=== PATIENT | female | born 1995 | race Hispanic/Latino ===

== ENCOUNTER 2021-05-24 09:35 | Emergency (ER) | payer OTHER, SELFPAY ==
[2021-05-24] MEDS ORDERED: MAGNES/ALUMIN/SIMET 30ML UCUP ONE (10:25)
[2021-05-24] MEDS ORDERED: LIDOCAINE VISCOUS 2% SOLN 15 ML UDC ONE (10:25)
[2021-05-24 11:29] LABS: SARS-COV-2 RT PCR NEGATIVE (NEGATIVE)
--- NOTE | 2021-05-24 11:43 | ER ---
Nurse's Notes [facility] Name: Len Mock Age: 26 yrs Sex: Female : 1995 Arrival Date: 05/24/2021 Time: 09:39 Bed 15 Private MD: Diagnosis: Acute pharyngitis, unspecified Presentation: 05/24 09:41 Chief complaint: Patient states: sore throat, cough, congestion x 1 week ago. aa5 Coronavirus screen: congestion, cough unrelated to allergies, sore throat. Ebola Screen: Patient negative for fever greater than or equal to 101.5 degrees Fahrenheit, and additional compatible Ebola Virus Disease symptoms. Initial Sepsis Screen: Does the patient meet any 2 criteria? No. Patient's initial sepsis screen is negative. Does the patient have a suspected source of infection? No. Patient's initial sepsis screen is negative. Risk Assessment: Do you want to hurt yourself or someone else? Patient reports no desire to harm self or others. Onset of symptoms was April 2021. 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 - Social history:: Smoking status: Patient denies any tobacco usage or history of. Screenin:07 Abuse screen: Denies threats or abuse. Nutritional screening: No deficits noted. oh Tuberculosis screening: No symptoms or risk factors identified. Fall Risk None identified. Assessment: 10:05 General: Appears comfortable, Behavior is calm, cooperative, Reports cough, congestion oh x 1 week. Pain: Complains of pain in throat. Respiratory: Reports cough that is. EENT: Reports nasal congestion. Vital Signs: 09:41 BP 123 / 82; Pulse 74; Resp 16 S; Temp 98.4(O); Pulse Ox 99% on R/A; Weight 68.04 kg aa5 (R); Height 5 ft. 1 in. (154.94 cm) (R); 09:41 Body Mass Index 28.34 (68.04 kg, 154.94 cm) aa5 ED Course: 09:39 Patient arrived in ED. as 09:41 Alicia Betancur FNP-C is [facility]. kb 09:41 Lee Acevedo MD is Attending Physician. kb 09:41 Arm band placed on. aa5 09:44 Triage completed. aa5 09:58 Geovanna Kessler, RN is Primary Nurse. oh 10:03 Strep Sent. tc5 10:07 Bed in low position. Call light in reach. oh 12:20 No provider procedures requiring assistance completed. Patient did not have IV access iw during this emergency room visit. Administered Medications: 10:05 Drug: GI Cocktail without - (Maalox Suspension 30 ml, Lidocaine Liquid 2 % 15 oh ml) Route: PO; 10:31 Follow up: Response: No adverse reaction oh Outcome: 11:43 Discharge ordered by MD. kb 12:20 Discharged to home ambulatory, with family. iw 12:20 Condition: good 12:20 Discharge instructions given to patient, Instructed on discharge instructions, follow up and referral plans. Demonstrated understanding of instructions, follow-up care. 12:20 Patient left the ED. iw Signatures: Alicia Betancur FNP-C FNP-Yanelis Vázquez as Lyubov Martinez, ANABEL RN Denise Baird, RN RN [facility] Geovanna Kessler, RN RN nd Meli Ruiz, RN RN 5 Corrections: (The following items were deleted from the chart) 10:44 10:03 Influenza Screen (A \T\ B)+BA.LAB.BRZ drawn and sent. tc5 EDMS :44 10:03 CORONAVIRUS+MR.LAB.BRZ drawn and sent. tc5 EDMS
--- NOTE | 2021-05-24 11:43 | EDPHYS ---
Physician Documentation [facility] Name: Len Mock Age: 26 yrs Sex: Female : 1995 Arrival Date: 05/24/2021 Time: 09:39 Bed 15 Private MD: ED Physician Lee Acevedo HPI: 05/24 11:33 This 26 yrs old Female presents to ER via Ambulatory with complaints of Cold kb Symptoms. 12:38 The patient or guardian reports cough, that is intermittent, described as mild. Onset: kb The symptoms/episode began/occurred 1 week(s) ago. Severity of symptoms: At their worst the symptoms were mild, in the emergency department the symptoms are unchanged. Modifying factors: The symptoms are alleviated by nothing, the symptoms are aggravated by nothing. Associated signs and symptoms: Pertinent positives: sore throat, Pertinent negatives: chest pain, diarrhea, ear ache, fever, nausea, rhinorrhea, vomiting. The patient has not experienced similar symptoms in the past. The patient has not recently seen a physician. Pt reports cough, congestion and sore throat for a week. 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 - Social history:: Smoking status: Patient denies any tobacco usage or history of. ROS: 12:38 Constitutional: Negative for fever, chills, and weight loss. kb 12:38 ENT: Positive for sinus congestion, sore throat. 12:38 Respiratory: Positive for cough. 12:38 All other systems are negative. Exam: 12:37 Constitutional: This is a well developed, well nourished patient who is awake, alert, kb and in no acute distress. Head/Face: Normocephalic, atraumatic. Respiratory: Respirations even and unlabored. No increased work of breathing, no retractions or nasal flaring. Skin: Warm, dry with normal turgor. Normal color. MS/ Extremity: Pulses equal, no cyanosis. Neurovascular intact. Full, normal range of motion. Neuro: Awake and alert, GCS 15, oriented to person, place, time, and situation. Moves all extremities. Normal gait. Psych: Awake, alert, with orientation to person, place and time. Behavior, mood, and affect are within normal limits. 12:37 ENT: External ear(s): are unremarkable, Ear canal(s): are normal, TM's: are normal, Nose: is normal, Posterior pharynx: Airway: normal, no evidence of obstruction, Tonsils: with erythema, Uvula: normal, midline, swelling, is not appreciated, erythema, that is moderate, exudate, is not appreciated. Vital Signs: 09:41 BP 123 / 82; Pulse 74; Resp 16 S; Temp 98.4(O); Pulse Ox 99% on R/A; Weight 68.04 kg aa5 (R); Height 5 ft. 1 in. (154.94 cm) (R); 09:41 Body Mass Index 28.34 (68.04 kg, 154.94 cm) aa5 MDM: 09:47 Patient medically screened. [facility] 11:50 Data reviewed: vital signs, nurses notes. Data interpreted: Pulse oximetry: on room air kb is 99 %. Interpretation: normal. Counseling: I had a detailed discussion with the patient and/or guardian regarding: the historical points, exam findings, and any diagnostic results supporting the discharge/admit diagnosis. 05/24 09:49 Order name: Strep; Complete Time: 11:01 kb 05/24 11:04 Order name: Throat Culture EDMS 05/24 11:31 Order name: COVID-19/FLU A+B; Complete Time: 11:32 EDMS Administered Medications: 10:05 Drug: GI Cocktail without - (Maalox Suspension 30 ml, Lidocaine Liquid 2 % 15 oh ml) Route: PO; 10:31 Follow up: Response: No adverse reaction oh Disposition: 05/25 05:50 Co-signature as Attending Physician, Lee Acevedo MD I agree with the assessment and [facility] plan of care. Disposition Summary: 05/24/21 11:43 Discharge Ordered Location: Home Condition: Stable kb Diagnosis - Acute pharyngitis, unspecified kb Followup: kb - With: Emergency Department - When: As needed - Reason: Worsening of condition Followup: kb - With: Private Physician - When: 2 - 3 days - Reason: Recheck today's complaints, Continuance of care, Re-evaluation by your physician Discharge Instructions: - Discharge Summary Sheet kb - Sore Throat kb - Pharyngitis, [id number] kb Forms: - Medication Reconciliation Form kb - Thank You Letter kb - Antibiotic Education kb - Prescription Opioid Use kb Signatures: Dispatcher [employer] EDMS Pipe Alicia, SPORTS BOOK BOARD ATTENDANT-C BRUNILDA-Lee Blackwell MD MD cha Calderon, Audri, RN RN aa5 Geovanna Kessler RN RN oh Corrections: (The following items were deleted from the chart) 05/24 10:44 09:49 CORONAVIRUS+MR.LAB.BRZ ordered. EDMS EDMS 10:44 09:49 Influenza Screen (A \T\ B)+BA.LAB.BRZ ordered. EDMS EDMS
[2021-05-24 12:53] VITALS: BP 123/82; TEMP 98.4; O2SAT 99
== END 2021-05-24 12:20 | disposition home or self-care (01) ==
LOC: ER 09:35
DX: J02.9 Acute pharyngitis, unspecified (principal); Z20.822 Contact with and (suspected) exposure to COVID-19
CPT/HCPCS: 0240U; 87070; 87081; 99283

== ENCOUNTER 2021-07-26 02:03 | Emergency (ER) | payer SELFPAY ==
[2021-07-26] MEDS ORDERED: HYDROCODONE/APAP 5/325 MG TAB ONE (02:33)
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
[2021-07-26 03:50] VITALS: BP 117/74; TEMP 98; O2SAT 100
--- NOTE | 2021-07-26 10:12 | RAD REPORT ---
EXAM DESCRIPTION: RAD - Hand Left 3 View - 07/26/2021 2:47 am CLINICAL HISTORY: Pain;Swelling COMPARISON: None. FINDINGS: Fracture is present in the proximal shaft fifth metacarpal with no significant distraction or angulation deformity. No other acute left hand bone or joint finding. No foreign body or other soft tissue abnormality. IMPRESSION: Nondisplaced, nonangulated fracture proximal fifth metacarpal.
== END 2021-07-26 03:32 | disposition home or self-care (01) ==
LOC: ER 02:03
PROC: 2W3DX1Z Immobilization of Left Lower Arm using Splint (ICD-10-PCS; principal; 2021-07-26)
DX: S62.357A Nondisplaced fracture of shaft of fifth metacarpal bone, left hand, initial encounter for closed fracture (principal); Y04.2XXA Assault by strike against or bumped into by another person, initial encounter; Y93.89 Activity, other specified; Y92.009 Unspecified place in unspecified non-institutional (private) residence as the place of occurrence of the external cause
CPT/HCPCS: 99285

== ENCOUNTER 2021-08-03 07:40 | Day surgery (SDC) | payer OTHER ==
[2021-08-03 07:55] LABS: Specific Gravity >= 1.030 (1.005-1.030)
[2021-08-03 08:10] LABS: Absolute Lymphocytes (CBC) 1.8 K/uL (0.7-4.9); Hematocrit 41.9 % (36.0-45.0); Lymphocytes % 18.4 % (15.3-44.8); MPV 9.3 fL (7.6-11.3); RBC Red Blood Cell Count 4.37 M/uL (3.86-4.86)
[2021-08-03] MEDS ORDERED: Ringers Lactate 1,000 ML IV ONE (08:16)
[2021-08-03] MEDS ORDERED: CEFAZOLIN/NS 1gm 1 GM/50 ML BAG ONE (09:41)
[2021-08-03] MEDS ORDERED: MIDAZOLAM HCL 2 MG/2 ML INJ ONE (09:49)
[2021-08-03] MEDS ORDERED: LIDOCAINE 1% MPF 5 ML VIAL ONE (09:49)
[2021-08-03] MEDS ORDERED: propofoL 200 MG/20 ML VIAL IV ONE (09:49)
[2021-08-03] MEDS ORDERED: FENTANYL CITR 100 MCG/2 ML ONE (09:49)
[2021-08-03] MEDS ORDERED: dexAMETHasone 10 MG/ML VIAL ONE (10:25)
[2021-08-03] MEDS ORDERED: KETOROLAC 30 MG/ML INJ ONE (10:26)
[2021-08-03] MEDS ORDERED: ONDANSETRON 4 MG/2 ML VIAL ONE ×2 (10:26→12:45)
[2021-08-03] MEDS: HYDROMORPHONE HCL 1 MG/ML INJ ONE ×2 (11:24→11:31)
[2021-08-03 11:32] VITALS: TEMP 97.6
--- NOTE | 2021-08-03 11:35 | RAD REPORT ---
EXAM DESCRIPTION: RAD - Hand Left 2 View - 08/03/2021 11:26 am CLINICAL HISTORY: ORIF COMPARISON: Hand Left 3 View dated 07/30/2021; Hand Left 3 View dated 07/26/2021 FINDINGS: Intraoperative images demonstrating placement of K-wires across the known fifth metacarpa l fracture. There is improved alignment. The K-wire traverses the carpal/metacarpal joint and extends into the hamate. The hardware is intact. No new fractures are seen. Fluoro time: 0.6 minute Dose: 1 mGy IMPRESSION: Intraoperative fluoroscopic images demonstrating fixation of the fifth metacarpal fractu re with K-wires. No new fractures. Improved alignment.
[2021-08-03] MEDS ORDERED: ONDANSETRON 4 MG/2 ML VIAL IV ONE (12:05)
[2021-08-03 13:09] VITALS: BP 98/60; O2SAT 99
--- NOTE | 2021-09-09 11:46 | OP ---
Surgeon: Jose Manuel Ellis MD Preoperative Diagnosis: Fracture of left little finger metacarpal. Postoperative Diagnosis: Fracture of left little finger metacarpal. Procedure: Percutaneous pinning and splint. Anesthesia: General. Procedure In Detail: After satisfactory induction of general anesthesia, the left arm was prepped wi th Betadine scrub and Betadine paint. Dry sterile drapes were applied in the usual manner. The arm was elevated, exsanguinated with an Esmarch, tourniquet inflated to 250 mmHg. C-arm was used. The f racture was reduced by placing traction and then 2 oblique K-wires 0.035 were placed from distal to p roximal under C-arm guidance. Reduction was adequate and wires were bent and then cut and then dress ed with Xeroform, 2-inch Keya, Kerlix, and a splint, holding the wrist in 10 degrees dorsiflexion, M CP 90, PIP and DIP 0. The patient tolerated the procedure well and returned to recovery. SAFIA/ELADIO Voice ID: [id number] Report ID: [id number]
== END 2021-08-03 13:00 | disposition home or self-care (01) ==
LOC: OR 07:40
PROVIDERS: ATTEND Specialist
PROC: 0PSQ34Z Reposition Left Metacarpal with Internal Fixation Device, Percutaneous Approach (ICD-10-PCS; principal; 2021-08-03 10:00)
DX: S62.307A Unspecified fracture of fifth metacarpal bone, left hand, initial encounter for closed fracture (principal); Z20.822 Contact with and (suspected) exposure to COVID-19
CPT/HCPCS: 85025; 36415; 81025; 73120; 26608; U0003; J2704; J2250; J3010; J1100; J1170; J0690; J7120; J2405 ×3

== ENCOUNTER 2022-09-29 17:52 | Emergency (ER) | payer OTHER, SELFPAY ==
--- OUTSIDE RECORDS SUMMARY | 2022-09-29 17:56 | XMS REPORT | Continuity of Care Document ---
:1995 Author Organization [facility] t Address [address] [place] [address] Care Team Providers Name Role Phone Nelsy Lua MD Primary Care Physician [phone] RICH LONDON Attending Clinician Unavailable RICH LONDON Attending Clinician Unavailable Doctor Unassigned, Sorrel Attending Clinician Unavailable Lab, Ang - Db Attending Clinician Unavailable JUANCARLOS LOPES Attending Clinician Unavailable Juancarlos Lopes MD Attending Clinician NELSY LUA Attending Clinician Unavailable Nelsy Lua MD Attending Clinician ABRAZO [facility] Attending Clinician Unavailable Patti Sheppard DO Attending Clinician PATTI SHEPPARD Attending Clinician Unavailable RICH LONDON Admitting Clinician Unavailable Payers Payer Name Policy Type Policy Number Effective Date Expiration Date S chanda [facility] [id number] 2020 00:00:00 [employer] [id number] 2022 PREFERRED GENERIC 00:00:00 HEALTHSMART-LUCENT 2 [id number] 2021 HEALTH 00:00:00 Problems Condition Condition Condition Status Onset Resolution Last Treating Co mments Source Name Details Category Date Date Treatment Clinician Date Left Left Disease Active 2021-08 Univers ovarian ovarian 0-26 ity of cyst cyst 00:00: [address] Branch Presence Presence Disease Active 2021-08 Unive rs of of 0-24 [place] of subdermal [place]pt 00 Me dical deisy device deisy device Br anch Disease Active 2021-08 Uni vers examinatio examinatio 0-24 it y of n or test, [place] 00 Medica [place] result result Branch Oral Oral Disease Active 2021-08 Univers contracept contracept 0-04 it y of ion ion 00:00: [place] initiation initiation 00 Me dical Branch Screening Screening Disease Active 2021-08 Uni vers for for 0-04 [place] of malignant malignant [place] neoplasm neoplasm 00 Medica l of the of the Branch cervix cervix [place] of [place] of Disease Active 2021-08 Univers right right 0-04 ity of breast, breast, 00:00: [place] unspecifie unspecifie 00 Me dical d quadrant d quadrant Br anch Vaginal Vaginal Disease Active 2021-08 Univers discharge discharge 0-04 ity of 00:00: [place] 00 Medical Branch Pain Pain Disease Active 2021-08 Univers pelvic pelvic 0-04 ity of 00:00: [place] 00 Medical Branch Excessive Excessive Disease Active 2021-08 Uni vers or or 0-04 ity of frequent frequent 00:00: [place] menstruati menstruati 00 Me dical on on Branch BMI BMI Disease Active 2021-08 Univers 32.0-32.9, 32.0-32.9, 0-04 it y of adult adult 00:00: [place] 00 Medical Branch No known No known Disease Unive rs active active ity of problems problems [facility] Allergies, Adverse Reactions, Alerts Allergy Allergy Status Severity Reaction(s) Onset Inactive Treating Comm ents Source Name Type Date Date Clinician NO KNOWN Drug Active Univers ALLERGIE Class ity of S [facility] Social History Social Habit Start Date Stop Date Quantity Comments Source Exposure to 2022-06-10 2022-06-20 Not sure University of SARS-CoV-2 00:00:00 11:29:00 [facility] (event) Branch Alcohol intake 2022-06-20 2022-06-20 Current drinker Unive rsity of 00:00:00 00:00:00 of alcohol [facility] (finding) Branch Tobacco use and 2022-03-10 2022-03-10 Smokeless tobacco Un iversity of exposure 00:00:00 00:00:00 non-user [facility] Sex Assigned At [birth year] Universit y of 00:00:00 00:00:00 [facility] Smoking Status Start Date Stop Date Source Never smoked tobacco [facility] [place] [facility] Ex-smoker 2021-11-19 00:00:00 2021-11-19 00:00:00 Lauriefrankie ritterpieter Medications Ordered Filled Start Stop Current Ordering Indication Dosage Frequency Signature Comments Components Source Medication Medication Date Date Medication? Clinician (SIG) Name Name No known 2021-08 No No known Unive rs medications 0-26 medication it y of 19:12: s [address] No known 2021-08 No No known Unive rs medications 0-26 medication it y of 19:12: s [address] norgestimat 2021-08 Yes [id number] 1{tbl} Take 1 Univers e-ethinyl 0-24 tablet by ity o f estradioL [place] ([place]TH[place] 00 the Medical TRI-CYCLEN morning. Bran h LO, 28,) 0.18/0.215/ 0.25 mg-25 mcg tablet norgestimat 2021-08 Yes [id number] 1{tbl} Take 1 Univers e-ethinyl 0-24 tablet by ity o f estradioL [place]TH[place] the Medical TRI-CYCLEN morning. Branc h LO, 28,) 0.18/0.215/ 0.25 mg-25 mcg tablet norgestimat 2021-08 Yes [id number] 1{tbl} Take 1 Univers e-ethinyl 0-24 tablet by ity o f estradioL 00:[place]TH[place] the Medical TRI-CYCLEN morning. Branc h LO, 28,) 0.18/0.215/ 0.25 mg-25 mcg tablet norgestimat 2021-08 Yes [id number] 1{tbl} Take 1 Univers e-ethinyl 0-24 tablet by ity o f estradioL 00:[place]TH[place] 00 the Medical TRI-CYCLEN morning. Branc h LO, 28,) 0.18/0.215/ 0.25 mg-25 mcg tablet No known 2021-08 No No known Unive rs medications 0-20 medication it y of 11:06: s [address] No known 2021-08 No No known Unive rs medications 0-05 medication it y of 12:45: [address] No known 2021-08 No No known Unive rs medications 0-05 medication it y of 12:45: [address] No known 2021-08 No No known Unive rs medications 0-05 medication it y of 12:45: [address] No known 2021-08 No No known Unive rs medications 0-05 medication it y of 12:45: [address] metroNIDAZO 2021-08- No [id number] 500mg Take 1 Univers LE 500 mg 0-05 10-13 tablet by ity of tablet 00:00: 04:59 mouth [place] 00 :00 every 12 Medical (twelve) Branch hours for 7 days. metroNIDAZO 2021-08- No [id number] 500mg Take 1 Univers LE 500 mg 0-05 10-13 tablet by ity of tablet 00:00: 04:59 mouth [place] 00 :00 every 12 Medical (twelve) Branch hours for 7 days. metroNIDAZO 2021-08- No [id number] 500mg Take 1 Univers LE 500 mg 0-05 10-13 tablet by ity of tablet 00:00: 04:59 mouth [place] 00 :00 every 12 Medical (twelve) Branch hours for 7 days. No known No No known Unive rs medications 7-14 medication it y of 10:46: [address] No known No No known Unive rs medications 7-14 medication it y of 10:46: [address] Etonogestre 2021- No Inject Ced sey l (IMPLANON 6-06 06-06 into the Sey bold SC) 15:56: 00:00 skin 35 :00 Naproxen Yes [id number] 500mg Take 1 Laurie 500 MG oral 6-06 tablet Seybol d Tablet 00:00: (500 mg 00 total) by mouth in the morning and 1 tablet (500 mg total) in the evening. Take with meals. Etonogestre Yes Inject Eneida ey l (IMPLANON 3-25 into the Seyb old SC) 10:44: skin 15 Immunizations Ordered Immunization Filled Immunization Date Status Commen ts Source Name Name Influenza Virus 2020-08-10 Completed Laurie Hoffman ybbhakti Vaccine, Split, up to 00:00:00 age 5 Tdap- (Boostrix, 2017-12-29 Completed Laurie hurtadobopieter Adacel) 00:00:00 PPD-Protein 2017-11-15 Completed Laurie Quanol d Derivative 00:00:00 (Purified)- Tuberculin Influenza, Seasonal, 2015-06-17 Completed Eneida ey Seybold Injectable, 00:00:00 Preservative Free Meningococcal 2013-07-02 Completed Laurie Hoffmanyb old Vaccine- 00:00:00 Conjugate(Menactra) Influenza, Seasonal, 2013-06-17 Completed Eneida ey Seybold Injectable, 00:00:00 Preservative Free Influenza, Seasonal, 2011-05-17 Completed Eneida ey Seybold Injectable, 00:00:00 Preservative Free HEPATITIS A- 2009-10-13 Completed Laurie Seybo ld PEDI/ADOL 00:00:00 HPV 4 (Human 2009-10-13 Completed Laurie Hoffmanybo ld Papillomavirus) 00:00:00 HPV 4 (Human 2009-06-01 Completed Lauriefrankie Quano ld Papillomavirus) 00:00:00 Influenza, Seasonal, 2009-06-01 Completed Eneida ey Seybold Injectable, 00:00:00 Preservative Free HEPATITIS A- 2009-03-02 Completed Laurie Seybo ld PEDI/ADOL 00:00:00 HPV 4 (Human 2009-03-02 Completed Laurie Seybo ld Papillomavirus) 00:00:00 Meningococcal 2009-03-02 Completed Laurie Hoffmanyb old Vaccine- 00:00:00 Conjugate(Menactra) Tdap- (Boostrix, 2009-03-02 Completed Laurie hurtadobopieter Adacel) 00:00:00 Varicella Vaccine 2009-03-02 Completed Laurie Melvin 00:00:00 DTP- 2001-04-03 Completed Laurie Hoffmanybbhakti Diphtheria,Tetanus,Pe 00:00:00 rtussis MMR- Measles, Mumps, 2001-04-03 Completed Eneida hurtado Seybbhakti Rubella 00:00:00 Polio Vaccine 2001-04-03 Completed Laurie Quan old 00:00:00 HIB- Haemophilus 1998-06-12 Completed Laurie Jones eybold Influenzae Type B 00:00:00 DTP- 1998-06-12 Completed Laurie Melvin Diphtheria,Tetanus,Pe 00:00:00 rtussis MMR- Measles, Mumps, 1998-04-15 Completed Eneida Melvin Rubella 00:00:00 Varicella Vaccine 1998-04-15 Completed Laurie Melvin 00:00:00 DTP- 1995 Completed Laurie Melvin Diphtheria,Tetanus,Pe 00:00:00 rtussis HIB- Haemophilus 1995 Completed Laurie hurtadobold Influenzae Type B 00:00:00 Hepatitis B, 1995 Completed Laurie stapleton Unspecified 00:00:00 Polio Vaccine 1995 Completed Laurie ya 00:00:00 HIB- Haemophilus 1995 Completed Laurie Jones eybold Influenzae Type B 00:00:00 DTP- 1995 Completed Laurie Melvin Diphtheria,Tetanus,Pe 00:00:00 rtussis Polio Vaccine 1995 Completed Laurie ya 00:00:00 HIB- Haemophilus 1995 Completed Laurie Jones eybold Influenzae Type B 00:00:00 DTP- 1995 Completed Laurie Melvin Diphtheria,Tetanus,Pe 00:00:00 rtussis Hepatitis B, 1995 Completed Laurie stapleton Unspecified 00:00:00 Polio Vaccine 1995 Completed Laurie ya 00:00:00 Hepatitis B, 1995 Completed Laurie stapleton Unspecified 00:00:00 Vital Signs Vital Name Observation Time Observation Value Comments Source Systolic blood 2022-06-20 16:44:00 116 mm[Hg] [facility] blood 2022-06-20 16:44:00 78 mm[Hg] [facility] Heart rate 2022-06-20 16:44:00 69 /min [facility] Body temperature 2022-06-20 16:44:00 36.72 Shira [facility] Respiratory rate 2022-06-20 16:44:00 16 /min Univ ersity of [place] [facility] Body height 2022-06-20 16:44:00 156.2 cm Universi ty [facility] [place] [facility] Body weight 2022-06-20 16:44:00 78.427 kg Universi ty of [place] [facility] BMI 2022-06-20 16:44:00 32.14 kg/m2 Universi ty of [place] [facility] Oxygen saturation in 2022-06-20 16:44:00 99 /min University of Arterial blood by [facility] candido Pulse oximetry Branch Systolic blood 2022-06-16 16:05:00 127 mm[Hg] Univer sity of pressure [place] [facility] Diastolic blood 2022-06-16 16:05:00 82 mm[Hg] Unive rsity of pressure [place] [facility] Heart rate 2022-06-16 16:05:00 81 /min Universi ty [facility] [place] [facility] Body temperature 2022-06-16 16:05:00 36.44 Shira Univ ersity of [place] [facility] Respiratory rate 2022-06-16 16:05:00 16 /min Univ ersity of [place] [facility] Body height 2022-06-16 16:05:00 156.2 cm Universi ty [facility] [place] [facility] Body weight 2022-06-16 16:05:00 76.431 kg Universi ty [facility] [place] [facility] BMI 2022-06-16 16:05:00 31.32 kg/m2 Universi ty [facility] [place] [facility] Oxygen saturation in 2022-06-16 16:05:00 96 /min University of Arterial blood by [facility] candido Pulse oximetry Branch Systolic blood 2022-05-31 20:03:00 107 mm[Hg] Univer sity of pressure [place] [facility] Diastolic blood 2022-05-31 20:03:00 72 mm[Hg] Unive rsity of pressure [place] [facility] Heart rate 2022-05-31 20:03:00 64 /min Universi ty [facility] [place] [facility] Body temperature 2022-05-31 20:03:00 36.28 Shira Univ ersity of [place] [facility] Respiratory rate 2022-05-31 20:03:00 18 /min Univ ersity [facility] [place] [facility] Body height 2022-05-31 20:03:00 156.2 cm Universi ty [facility] [place] [facility] Body weight 2022-05-31 20:03:00 76.658 kg Universi ty of [place] [facility] [place] BMI 2022-05-31 20:03:00 31.42 kg/m2 Universi ty of [facility] Systolic blood 2022-03-10 15:42:00 114 mm[Hg] Univer sity of pressure [facility] Diastolic blood 2022-03-10 15:42:00 80 mm[Hg] Unive rsity of [facility] Heart rate 2022-03-10 15:42:00 74 /min Universi ty of [facility] Body height 2022-03-10 15:42:00 154.9 cm Universi ty of [facility] Body weight 2022-03-10 15:42:00 75.297 kg Universi ty [facility] BMI 2022-03-10 15:42:00 31.37 [facility] Oxygen saturation in 2022-03-10 15:42:00 96 /min [facility] blood by [facility] Pulse oximetry Branch Systolic blood 2022-01-31 20:51:00 112 mm[Hg] Laurie Seybold pressure Diastolic blood 2022-01-31 20:51:00 74 mm[Hg] Kelse y Seybold pressure Heart rate 2022-01-31 20:51:00 82 /min Laurie S genesisbold Body temperature 2022-01-31 20:51:00 36.78 Sihra Eneida ey Seybold Respiratory rate 2022-01-31 20:51:00 16 /min Eneida ey Seybold Body height 2022-01-31 20:51:00 154.9 cm Laurie S eybold Body weight 2022-01-31 20:51:00 75.297 kg Laurie S eybold BMI 2022-01-31 20:51:00 31.37 kg/m2 Laurie S eybold Procedures Procedure Date / Time Performing Clinician Source Performed DISCLOSURE AND CONSENT, 2022-06-20 05:01:00 Doctor Unassigned, N o [facility] MEDICAL AND SURGICAL Name Medical Bra [facility] PROCEDURES POCT TEST 2022-06-20 00:00:00 Rich London [facility] BI ULTRASOUND BREAST 2022-06-10 18:17:10 Rich London [facility] Branch US PELVIS COMPLETE WITH 2022-06-08 23:02:28 Rich London [facility] TRANSVAGINAL [facility] PHYSICIAN ORDERS 2022-06-07 05:01:00 Doctor UnassBeata craine rsity of [place] Name [facility] PAP SMEAR-LIQUID 2022-05-31 20:16:[address] [facility] Encounters Start End Encounter Admission Attending Care Care Encounter Source Date/Time Date/Time Type Type Clinicians Facility Department ID 2022-09-13 2022-09-13 Outpatient R RICH LONDON [facility] [id number] Univers 11:30:00 11:30:00 RICH LONDON [facility] 2022-06-20 2022-06-20 Outpatient R RICH LONDON [facility] [id number] Univers 11:30:00 12:02:15 RICH LONDON [facility] 2022-06-20 2022-06-20 [facility] [id number] Univers 11:30:00 12:02:15 Visit Rich BETANCUR [id number] it y of WOMEN'S 4.2.7.2.686 [facility] s HEALTH [id number] [facility] 134 Branch 2022-06-20 2022-06-20 Orders Doctor ABDULLAHI [id number] Univers 00:00:00 00:00:00 Only Unassigned, DELONTE 350.1.13.10 ity of Sorrel [facility] 4.2.7.2.686 Joshua as [id number] [facility] 009 Branch 2022-06-16 2022-06-16 Outpatient R RICH LONDON [facility] [id number] Univers 11:00:00 11:15:43 RICH LONDON kory [facility] 2022-06-16 2022-06-16 Office [facility] [id number] Univers 11:00:00 11:15:43 Visit Rich BETANCUR [id number] it y of WOMEN'S 4.2.7.2.686 [facility] [id number] [facility] 134 Branch 2022-06-10 2022-06-10 [facility] [id number] Univers 12:54:11 23:59:00 Encounter Rich SPECIALTY [id number] ity of [facility] 4.2.7.2.686 [facility] AT [id number] [place] neilparadise WHITE 800 [facility] 2022-06-10 2022-06-[address] [facility] [id number] Univers 12:54:10 23:59:00 KSENIAVANESSA RICH [facility] 2022-06-08 2022-06-[address] [facility] [id number] Univers 17:24:06 23:59:00 SURYA BLAIRMARIAN [facility] 2022-06-08 2022-06-08 [facility] 1.2.840.114 [id number] Univers 17:24:06 23:59:00 Encounter Rich LOVING 350.1.13.10 ity of [place] 4.2.7.2.686 [facility] [id number] [facility] [address] [place] 2022-06-07 2022-06-07 Orders Doctor BRADLY 1.2.840.114 [id number] Univers 00:00:00 00:00:00 Only Unassigned, DELONTE 350.1.13.10 ity of Sorrel [facility] 4.2.7.2.686 Joshua [id number] [facility] 009 Branch 2022-06-07 2022-06-07 Telephone [facility] 1.2.840.11 [id number] Univers 00:00:00 00:00:00 Rich BETANCUR 350.1.13.10 it y of WOMEN'S 4.2.7.2.686 [facility] [id number] [facility] 134 Branch 2022-06-01 2022-06-01 Case [facility] 1.2.840.114 [id number] Univers 00:00:00 00:00:00 Management Rich BETANCUR [id number] ity [place].2.686 [place] [id number] [address] 2022-06-01 2022-06-01 Telephone Suray [facility] 1.2.840.11 [id number] Univers 00:00:00 00:00:00 Rich BETANCUR 350.1.13.10 it y [place].2.686 [place] [id number] [address] 2022-05-31 2022-05-31 Lead Scientist Lab, Ang - Db [facility] 1.2.840.1 [id number] Univers 15:45:00 16:00:00 Visit Rich London 350.1.13.1 0 ity of [place] 4.2.7.2.686 Joshua as RUPAL?BLEA [id number] [address] MEDICAL OFFICE BUILDING 2022-05-31 2022-05-31 Outpatient R RICH LONDON [facility] B [id number] Univers 15:00:00 15:25:34 RUFUSRICH DREW [facility] 2022-05-31 2022-05-31 [facility] 1.2.840.114 [id number] Univers 15:00:00 15:25:34 Visit Rich BETANCUR 350.1.13.10 it y of [place] 4[place].2.[place] [id number] [address] 2022-03-10 2022-03-10 Outpatient R [facility]IAN[facility] [id number] Univers 10:30:00 12:12:47 JUANCARLOS fernández [facility] 2022-03-10 2022-03-10 Outpatient R [facility] [id number] Univers 10:30:00 12:12:47 JUANCARLOS fernández [facility] 2022-03-10 2022-03-10 [facility] [id number] Univers 10:30:00 12:12:47 Visit Juancarlos Bear [facility] 350.1.13.10 it y of [facility] 4.2.7.2.686 Joshua as RUPAL?BLEA [id number] [place] omar REYNOLDS [address] [place] [address] MEDICAL OFFICE [facility] 2022-02-16 2022-02-16 Outpatient LAURIE LUA [id number] Laurie 00:00:00 00:00:00 NELSY Seybol d 2022-02-16 2022-02-16 Outpatient LAURIE LUA [id number] Laurie 00:00:00 00:00:00 NELSY Seybol d 2022-01-31 2022-01-31 Office Edwardo Lua 1.2.840.114 [id number] Laurie 16:00:00 16:15:00 Visit Nelsy Betancur 350.1.13.13 Se ybold Somogyi 1.2.7.2.686 [id number] 2021-11-19 2021-11-19 Outpatient EDWARDO LAZO [id number] Laurie 13:30:00 13:30:00 Seybol d 2021-11-19 2021-11-19 Telemedici PATRICK Sheppard 1.2.840.114 [id number] Laurie 11:30:00 12:08:43 ne Patti Jones MEDICAL & 350.1.13.13 Seybold DIAGNOSTI 1.2.7.2.686 [facility] [id number] 2021-11-19 2021-11-19 Outpatient LAURIE SHEPPARD [id number] Laurie 00:00:00 00:00:00 PATTI Quanol d Results Test Description Test Time Test Comments Results Result Comments Source POCT TEST 2022-06-20 18:11:00 Test Item Value Reference Range Interpretation Comme nts POCT PREG (test code = 1605) Negative On board controls acceptable with C Line (test code = 3574) Yes POCT PREG LOT # (test code = 3575) POCT PREG TEST DATE (test code = 3576) [facility] [place] [facility] [id number] 18:11:00 Test Item Value Reference Range Interpretation Comments POCT PREG (test code = 1605) Negative On board controls acceptable with C Yes Line (test code = 3574) POCT PREG LOT # (test code = 3575) POCT PREG TEST DATE (test code = 3576) [facility] [place] [facility] [id number] 18:11:00 Test Item Value Reference Range Interpretation Comments POCT PREG (test code = 1605) Negative On board controls acceptable with C Yes Line (test code = 3574) POCT PREG LOT # (test code = 3575) POCT PREG TEST DATE (test code = 3576) [facility] [place] [facility]-CoV-2 (COVID-19), RT-PCR/[id number] 15:37:11 Test Item Value Reference Interpretation Comments Range SARS-CoV-2 POSITIVE SEE NOTE A SARS-CoV-2 RNA INTERPRETATION DETECTEDPosit deisy results (test code = 94978) are amy cative of the presence of CALLUM S-CoV-2 RNA;clinical co rrelation with patient hi story and other diagnosticinfor mation is necessary to de termine patient infecti on status.Positive results do not rule out bacterial infection or co-infectionwit h other viruses. Positi ve and negative predic tive values oftestin g are highly dependen t on prevalence. SOURCE (test code = NOT [place]IF[place]: [place] [address]) Matt Tania Nimco l-Time RT-PCR. The exp ected result or refer ence range is NEGATIVE (No t Detected). For more information reg arding COVID-19 testin g to include clinicalinforma tion, methodology det ail, intended use, F DA authorization andrecommended fact sheets for alla ents or healthcare prov iders, see NewTest Announc ement: SARS-CoV-2 (COV ID-19) by NAAT at URL bel ow (note,fact shee ts are provided by met hod given in report:https:// www.[employer] SARLcom/clinician s/client-c ommunications/ Alternatively, see downloadable PD F fact sheet at:https://www. [employer].Payveris m/[email or web address] CR UNLESS OTHERWISE INDIC ATED, ALL TESTING PERFORM ED ATCLINICAL PATH [facility], I [place]. [address] [place] [id number] LABORATORY DIRE CTOR: Ayah CARDOZA [place] NUMBER [id number] CAP ACCREDITATION N O. [id number]
[2022-09-29] MEDS ORDERED: LIDOCAINE HCL JELLY 2% 6 ML SYRINGE TOP ONE (19:06)
[2022-09-29] MEDS ORDERED: DOXYCYCLINE 100 MG CAP PO ONE (19:06)
--- NOTE | 2022-09-29 20:31 | EDPHYS ---
Physician Documentation [facility] Name: Len Mock Age: 27 yrs Sex: Female : 1995 Arrival Date: 09/29/2022 Time: 17:53 Bed 10 Private MD: ED Physician Scott Curran HPI: 09/29 18:50 This 27 yrs old Female presents to ER via Ambulatory with complaints of Finger snw Laceration. 18:50 The patient or guardian reports injury. The complaints affect the dorsal aspect of snw proximal phalanx of left ring finger and dorsal aspect of proximal phalanx of left middle finger. Context: The problem was sustained at home, resulted from cooking. Onset: The symptoms/episode began/occurred suddenly. Associated signs and symptoms: The patient has no apparent associated signs or symptoms. Severity of symptoms: At their worst the symptoms were very mild, mild. The patient has not experienced similar symptoms in the past. The patient has not recently seen a physician. tetanus up to date. Historical: - Allergies: 17:59 No Known Allergies; ll1 - PMHx: 17:59 None; ll1 - PSHx: 17:59 R wrist; finger SX; ll1 - Immunization history:: Client reports receiving the 2nd dose of the Covid vaccine, Last tetanus immunization: unknown. - Social history:: Smoking status: Patient denies any tobacco usage or history of. ROS: 18:50 Constitutional: Negative for fever, chills, and weight loss, Eyes: Negative for injury, snw pain, redness, and discharge, ENT: Negative for injury, pain, and discharge, Neck: Negative for injury, pain, and swelling, Cardiovascular: Negative for chest pain, palpitations, and edema, Respiratory: Negative for shortness of breath, cough, wheezing, and pleuritic chest pain, Abdomen/GI: Negative for abdominal pain, nausea, vomiting, diarrhea, and constipation, Back: Negative for injury and pain, : Negative for injury, bleeding, discharge, and swelling, MS/Extremity: Negative for injury and deformity, Neuro: Negative for headache, weakness, numbness, tingling, and seizure, Psych: Negative for depression, anxiety, suicide ideation, homicidal ideation, and hallucinations. 18:50 Skin: Positive for laceration(s), of the dorsal aspect of proximal phalanx of left ring finger and dorsal aspect of proximal phalanx of left middle finger. Exam: 18:47 Constitutional: This is a well developed, well nourished patient who is awake, alert, snw and in no acute distress. Head/Face: Normocephalic, atraumatic. Eyes: Pupils equal round and reactive to light, extra-ocular motions intact. Lids and lashes normal. Conjunctiva and sclera are non-icteric and not injected. Cornea within normal limits. Periorbital areas with no swelling, redness, or edema. ENT: Nares patent. No nasal discharge, no septal abnormalities noted. Tympanic membranes are normal and external auditory canals are clear. Oropharynx with no redness, swelling, or masses, exudates, or evidence of obstruction, uvula midline. Mucous membranes moist. 18:47 Neck: Trachea midline, no thyromegaly or masses palpated, and no cervical lymphadenopathy. Supple, full range of motion without nuchal rigidity, or vertebral point tenderness. No Meningismus. Chest/axilla: Normal chest wall appearance and motion. Nontender with no deformity. No lesions are appreciated. 18:47 Skin: Appearance: normal except for affected area, injury, laceration(s), the wound is approximately .2 cm(s), with a depth of .1 cm(s), of the dorsal aspect of proximal phalanx of left middle finger and dorsal aspect of proximal phalanx of left ring finger. Vital Signs: 17:57 BP 121 / 78; Pulse 82; Resp 17; Temp 97.3; Pulse Ox 99% ; Weight 68.04 kg; Height 5 ft. ll1 1 in. (154.94 cm); Pain 6/10; 17:57 Body Mass Index 28.34 (68.04 kg, 154.94 cm) ll1 MDM: 18:39 Patient medically screened. snw 18:55 Differential diagnosis: laceration. Data reviewed: vital signs, nurses notes. snw Counseling: I had a detailed discussion with the patient and/or guardian regarding: the historical points, exam findings, and any diagnostic results supporting the discharge/admit diagnosis, the need for outpatient follow up, for definitive care, to return to the emergency department if symptoms worsen or persist or if there are any questions or concerns that arise at home. 09/29 20:31 Order name: Wound Care snw Administered Medications: 19:04 Drug: Doxycycline 100 mg Route: PO; ko1 19:52 Follow up: Response: No adverse reaction 3 19:45 Drug: Lidocaine Gel 2 % 1 application {Note: administered by CRISTINA Maradiaga} 3 Route: Mucous Membrane; 20:48 Drug: Hibiclens (chlorhexidine) Liquid 4 % 1 application {Note: administered by Mary Anne [facility] BRUNILDA Wakefield-Shaina} Route: Topical; Site: affected area; Disposition: 19:10 Co-signature as Attending Physician, Scott Curran DO. ms3 19:10 I reviewed the patient's care provided by the Advanced Practice Provider and agree with ms3 the diagnosis and treatment plan. Disposition Summary: 09/29/22 20:30 Discharge Ordered Location: Home snw Condition: Stable snw Diagnosis - Laceration without foreign body of left hand snw Followup: snw - With: Emergency Department - When: 10 - 14 days - Reason: Staple/Suture removal Discharge Instructions: - Discharge Summary Sheet snw - Sutured Wound Care snw Forms: - Work release form snw - Medication Reconciliation Form snw - Thank You Letter snw - Antibiotic Education snw - Prescription Opioid Use snw Prescriptions: - Mobic 7.5 mg Oral Tablet - take 1 tablet by ORAL route once daily take with food; 20 tablet; Refills: 0, snw Product Selection Permitted - Doxycycline Hyclate 100 mg Oral Tablet - take 1 tablet by ORAL route once daily; 10 tablet; Refills: 0, Product snw Selection Permitted Signatures: Mary Anne Wakefield FNP-Raegan WORLEY-CsnAnneliese Baldwin, RN RN ll1 Scott Curran DO DO ms3 Mar Livingston RN RN eh3 Sheri Mitchell, RN RN ko1
--- NOTE | 2022-09-29 20:31 | ER ---
Nurse's Notes [facility] Name: Len Mock Age: 27 yrs Sex: Female : 1995 Arrival Date: 09/29/2022 Time: 17:53 Bed 10 Private MD: Diagnosis: Laceration without foreign body of left hand Presentation: 09/29 17:57 Chief complaint: Patient states: Knife cut between 3rd and 4th digits of L hand while ll1 preparing chicken for supper this evening. Bleeding controlled. Coronavirus screen: Vaccine status: Patient reports receiving the 2nd dose of the covid vaccine. Client denies travel out of the [place] in the last 14 days. At this time, the client does not indicate any symptoms associated with coronavirus-19. Ebola Screen: Patient denies travel to an Ebola-affected area in the 21 days before illness onset. Initial Sepsis Screen: Does the patient meet any 2 criteria? No. Patient's initial sepsis screen is negative. Does the patient have a suspected source of infection? Yes: Skin breakdown/wound. Risk Assessment: Do you want to hurt yourself or someone else? Patient reports no desire to harm self or others. Onset of symptoms was September 29, 2022. 17:57 Method Of Arrival: Ambulatory ll1 17:57 Acuity: KAYLEY 4 ll1 Historical: - Allergies: 17:59 No Known Allergies; ll1 - PMHx: 17:59 None; ll1 - PSHx: 17:59 R wrist; finger SX; ll1 - Immunization history:: Client reports receiving the 2nd dose of the Covid vaccine, Last tetanus immunization: unknown. - Social history:: Smoking status: Patient denies any tobacco usage or history of. Screenin:30 [facility] ED Fall Risk Assessment (Adult) History of falling in the last 3 months, ko1 including since admission No falls in past 3 months (0 pts) Confusion or Disorientation No (0 pts) Intoxicated or Sedated No (0 pts) Impaired Gait No (0 pts) Mobility Assist Device Used No (0 pt) Altered Elimination No (0 pt) Score/Fall Risk Level 0 - 2 = Low Risk Oriented to surroundings, Maintained a safe environment, Educated pt \T\ family on fall prevention, incl call for assistance when getting out of bed, Assessed \T\ reinforced patient's understanding of fall precautions, Provided non-skid footwear, Hourly rounding (assess needs \T\ fall precautionary measures) done, Used ambulatory aids as needed (educated on \T\ assisted with), Used gait belt as appropriate. Abuse screen: Denies threats or abuse. Denies injuries from another. Nutritional screening: No deficits noted. Tuberculosis screening: No symptoms or risk factors identified. Assessment: 18:30 General: Appears in no apparent distress. comfortable, Behavior is calm, cooperative, ko1 appropriate for age. Pain: Complains of pain in left hand and dorsal aspect of proximal phalanx of left ring finger and dorsal aspect of proximal phalanx of left middle finger. Neuro: No deficits noted. Cardiovascular: No deficits noted. Respiratory: No deficits noted. GI: No deficits noted. : No deficits noted. EENT: No deficits noted. Derm: No deficits noted. Musculoskeletal: No deficits noted. Injury Description: Laceration sustained to left hand and dorsal aspect of proximal phalanx of left ring finger and dorsal aspect of proximal phalanx of left middle finger is was sustained 30-60 minutes ago. a small amount of bleeding noted at this time. Vital Signs: 17:57 BP 121 / 78; Pulse 82; Resp 17; Temp 97.3; Pulse Ox 99% ; Weight 68.04 kg; Height 5 ft. ll1 1 in. (154.94 cm); Pain 6/10; 17:57 Body Mass Index 28.34 (68.04 kg, 154.94 cm) ll1 ED Course: 17:53 Patient arrived in ED. rg4 17:59 Triage completed. ll1 18:00 Arm band placed on. ll1 18:06 Mary Anne Wakefield FNP-C is PHCP. snw 18:06 Scott Curran DO is Attending Physician. snw 18:30 Patient has correct armband on for positive identification. Bed in low position. Call ko1 light in reach. Side rails up X 1. Client placed on continuous cardiac and pulse oximetry monitoring. NIBP monitoring applied. monitoring specialist on. 18:54 Sheri Mitchell, RN is Primary Nurse. ko1 21:02 No provider procedures requiring assistance completed. Patient did not have IV access eh3 during this emergency room visit. 21:02 Wound care: to laceration located on left hand was dressed with band aid, [place], eh3 Patient tolerated well. Administered Medications: 19:04 Drug: Doxycycline 100 mg Route: PO; ko1 19:52 Follow up: Response: No adverse reaction 3 19:45 Drug: Lidocaine Gel 2 % 1 application {Note: administered by CRISTINA Maradiaga} 3 Route: Mucous Membrane; 20:48 Drug: Hibiclens (chlorhexidine) Liquid 4 % 1 application {Note: administered by Mary Anne 3 CRISTINA Wakefield} Route: Topical; Site: affected area; Medication: 21:02 VIS not applicable for this client. 3 Outcome: 20:30 Discharge ordered by . [facility] 21:02 Discharged to home ambulatory, with family. [facility] 21:02 Condition: stable 21:02 Discharge instructions given to patient, Instructed on discharge instructions, follow up and referral plans. medication usage, wound care, Demonstrated understanding of instructions, follow-up care, medications, wound care, Prescriptions given X 2. 21:04 Patient left the ED. 3 Signatures: Mary Anne Wakefield FNP-C FNP-Csnw Garcia, Rubi rg4 Anneliese Garner, RN RN ll1 Mar Livingston, ANABEL RN eh3 Sheri Mitchell, ANABEL RN ko1 Corrections: (The following items were deleted from the chart) 18:47 17:57 Chief complaint: Patient states: Knife cut between 3rd and 4th digits of L hand. ll1 Bleeding controlled. ll1
[2022-09-29 21:08] VITALS: BP 121/78; TEMP 97.3; O2SAT 99
== END 2022-09-29 21:04 | disposition home or self-care (01) ==
LOC: ER 17:52
DX: S61.213A Laceration without foreign body of left middle finger without damage to nail, initial encounter (principal); S61.215A Laceration without foreign body of left ring finger without damage to nail, initial encounter
CPT/HCPCS: 99284

== ENCOUNTER 2023-11-23 07:24 | Emergency (ER) | payer OTHER ==
--- OUTSIDE RECORDS SUMMARY | 2023-11-23 07:29 | XMS REPORT | Continuity of Care Document ---
Author Name Unknown Address [address] [facility] [address] [place] [address] [facility] thconnect Address [address] [facility] [place] [address] Care Team Providers Care Hand Outside Cutter Name Role Phone Mahesh CARBAJAL, Morgan Matson Primary Care Physician ЕЛЕНА UMNOZ Attending Clinician ЕЛЕНА Lester Attending Clinician Jhonny vega Doctor Unassigned, [place] Attending Clinician U navailable Lab, Ang - Db Attending Clinician Unavailable Pob, Ad[facility] Lab Main Attending Clinician ALDA Welch Attending Clinician UnavailALDA Waggoner Attending Clinician UnavailAimee Levine PA-C Attending Clinician [phone] Unknown, Attending Attending Clinician UnavailAIMEE Morris Attending Clinician Unavailable DELANEY GARCIA Attending Clinician Unavailable Delaney Starr Attending Clinician [phone] JUANCARLOS LOPES Attending Clinician UnavailJuancarlos Kramer MD Attending Clinician [phone] MORGAN LUA Attending Clinician Nani Lua MD, Morgan Matson Attending Clinician [phone] EDWARDO LAZO Attending Clinician UnavailAxel Shore DO Attending Clinician [phone] AXEL COLBERT Attending Clinician Unavailable ALDA LONDON Admitting Clinician Unavaila ble Payers Payer Name Policy Type Policy Number Effective Date Expirati on Date Source UMR [id number] 2020 00:00:00 [facility] LAURA [id number] 2023 00:00:00 [employer]IC [id number] 2022 00[facility]00[facility] [id number] 2021 00:00:00 Problems Condition Name Condition Details Condition Category Status Onset Date Resolution Date Last Treatment Date Treating Clinician Comments Source High-risk in first trimester High-risk in first trimester Disease Active 2- 00:00: 00 [facility] History of gallstones History of gallstones Disease Active 2-20 00:00: 00 [facility] Left ovarian cyst Left ovarian cyst Disease Active 2021-08 0-26 00:00: 00 [facility] Presence of subdermal contracept deisy device Presence of subdermal contracept deisy device Disease Active 2021-08 0-24 00:00: 00 [facility] examinatio n or test, negative result examinatio n or test, negative result Disease Active 2021-08 0-24 00:00: 00 [facility] Oral contracept ion initiation Oral contracept ion initiation Disease Active 2021-08 0-04 00:00: 00 [facility] Screening for malignant neoplasm of the cervix Screening for malignant neoplasm of the cervix Disease Active 2021-08 0-04 00:00: 00 [facility] Mass of right breast, unspecifie d quadrant Mass of right breast, unspecifie d quadrant Disease Active 2021-08 0-04 00:00: 00 [facility] Vaginal discharge Vaginal discharge Disease Active 2021-08 0-04 00:00: 00 [facility] Pain pelvic Pain pelvic Disease Active 2021-08 0-04 00:00: 00 [facility] Excessive or frequent menstruati on Excessive or frequent menstruati on Disease Active 2021-08 0-04 00:00: 00 [facility] BMI 32.0-32.9, adult BMI 32.0-32.9, adult Disease Active 2021-08 0 00:00: 00 [facility] No known active problems No known active problems Disease [facility] Allergies, Adverse Reactions, Alerts Allergy Name Allergy Type Status Severity Reaction(s) Onset Date Inactive Date Treating Clinician Comments Source NO KNOWN ALLERGIE S Drug Class Active [facility] Social History Social Habit Start Date Stop Date Quantity Comments Source ASSERTION 2023-08-14 00:00:00 [facility] 2023-11-16 00:00:00 2023-11-16 00:00:00 Ex-drinker (finding) [facility] Exposure to SARS-CoV-2 (event) 2022-06-10 00:00:00 2022-06-20 11:29:00 Not sure [facility] History of Social function 2022-05-31 00:00:00 2022-05-31 00:00:00 [facility] Tobacco use and exposure 2022-03-10 00:00:00 2022-03-10 00:00:00 Smokeless tobacco non-user [facility] Sex Assigned At 1995 00:00:00 1995 00:00:00 [facility] Smoking Status Start Date Stop Date Source Never smoked tobacco [facility] Ex-smoker 2021-11-19 00:00:00 2021-11-19 00:00:00 Ned Melvin Medications Ordered Medication Name Filled Medication Name Start Date Stop Date Current Medication? Ordering Clinician Indication Dosage Frequency Signature (SIG) Comments Components Source fluconazole 200 mg tablet 2022-08 00:00: 00 Yes [id number] 200mg Take 1 tablet by mouth every 3 (three) days. [facility] fluconazole 200 mg tablet 2022-08 00:00: 00 Yes [id number] 200mg Take 1 tablet by mouth every 3 (three) days. [facility] fluconazole 200 mg tablet 2022-08 00:00: 00 Yes [id number] 200mg Take 1 tablet by mouth every 3 (three) days. [facility] fluconazole 200 mg tablet 2022-08 0 00:00: 00 Yes [id number] 200mg Take 1 tablet by mouth every 3 (three) days. [facility] fluconazole 200 mg tablet 2022-08 0 00:00: 00 Yes [id number] 200mg Take 1 tablet by mouth every 3 (three) days. [facility] fluconazole 200 mg tablet 2022-08 0 00:00: 00 Yes [id number] 200mg Take 1 tablet by mouth every 3 (three) days. [facility] fluconazole 200 mg tablet 2022-08 0 00:00: 00 Yes [id number] 200mg Take 1 tablet by mouth every 3 (three) days. [facility] fluconazole 200 mg tablet 2022-08 00:00: 00 Yes [id number] 200mg Take 1 tablet by mouth every 3 (three) days. [facility] fluconazole 200 mg tablet 2022-08 00:00: 00 Yes [id number] 200mg Take 1 tablet by mouth every 3 (three) days. [facility] fluconazole 200 mg tablet 2022-08 0 00:00: 00 Yes [id number] 200mg Take 1 tablet by mouth every 3 (three) days. [facility] fluconazole 200 mg tablet 2022-08 00:00: 00 Yes [id number] 200mg Take 1 tablet by mouth every 3 (three) days. [facility] fluconazole 200 mg tablet 2022-08 0 00:00: 00 Yes [id number] 200mg Take 1 tablet by mouth every 3 (three) days. [facility] fluconazole 200 mg tablet 2022-08 0 00:00: 00 Yes [id number] 200mg Take 1 tablet by mouth every 3 (three) days. [facility] fluconazole 200 mg tablet 2022-08 0 00:00: 00 Yes [id number] 200mg Take 1 tablet by mouth every 3 (three) days. [facility] fluconazole 200 mg tablet 2022-08 0 00:00: 00 Yes [id number] 200mg Take 1 tablet by mouth every 3 (three) days. [facility] ondansetron 4 mg disintegrat ing tablet 02-27 00:00: 00 03-05 04:59 :00 No [id number] 4mg Take 1 tablet by mouth every 8 (eight) hours as needed for Nausea and Vomiting (N/V) for up to 5 days. [facility] No known medications 2021-08 19:12: 12 No No known medication s [facility] No known medications 2021-08 19:12: 12 No No known medication s [facility] norgestimat e-ethinyl estradioL (ORTHO TRI-CYCLEN LO, 28,) 0.18/0.215/ 0.25 mg-25 mcg tablet 2021-08 0 00:00: 00 Yes [id number] 1{tbl} Take 1 tablet by mouth in the morning. [facility] norgestimat e-ethinyl estradioL (ORTHO TRI-CYCLEN LO, 28,) 0.18/0.215/ 0.25 mg-25 mcg tablet 2021-08 0 00:00: 00 Yes [id number] 1{tbl} Take 1 tablet by mouth in the morning. [facility] norgestimat e-ethinyl estradioL (ORTHO TRI-CYCLEN LO, 28,) 0.18/0.215/ 0.25 mg-25 mcg tablet 2021-08 0 00:00: 00 Yes [id number] 1{tbl} Take 1 tablet by mouth in the morning. [facility] norgestimat e-ethinyl estradioL (ORTHO TRI-CYCLEN LO, 28,) 0.18/0.215/ 0.25 mg-25 mcg tablet 2021-08 0 00:00: 00 Yes [id number] 1{tbl} Take 1 tablet by mouth in the morning. [facility] norgestimat e-ethinyl estradioL (ORTHO TRI-CYCLEN LO, 28,) 0.18/0.215/ 0.25 mg-25 mcg tablet 2021-08 024 00:00: 00 Yes [id number] 1{tbl} Take 1 tablet by mouth in the morning. [facility] norgestimat e-ethinyl estradioL (ORTHO TRI-CYCLEN LO, 28,) 0.18/0.215/ 0.25 mg-25 mcg tablet 2021-08 0-24 00:00: 00 Yes [id number] 1{tbl} Take 1 tablet by mouth in the morning. [facility] norgestimat e-ethinyl estradioL (ORTHO TRI-CYCLEN LO, 28,) 0.18/0.215/ 0.25 mg-25 mcg tablet 2021-08 0-24 00:00: 00 Yes [id number] 1{tbl} Take 1 tablet by mouth in the morning. [facility] norgestimat e-ethinyl estradioL (ORTHO TRI-CYCLEN LO, 28,) 0.18/0.215/ 0.25 mg-25 mcg tablet 2021-08 0-24 00:00: 00 Yes [id number] 1{tbl} Take 1 tablet by mouth in the morning. [facility] norgestimat e-ethinyl estradioL (ORTHO TRI-CYCLEN LO, 28,) 0.18/0.215/ 0.25 mg-25 mcg tablet 2021-08 024 00:00: 00 Yes [id number] 1{tbl} Take 1 tablet by mouth in the morning. [facility] norgestimat e-ethinyl estradioL (ORTHO TRI-CYCLEN LO, 28,) 0.18/0.215/ 0.25 mg-25 mcg tablet 2021-08 0-24 00:00: 00 Yes [id number] 1{tbl} Take 1 tablet by mouth in the morning. [facility] norgestimat e-ethinyl estradioL (ORTHO TRI-CYCLEN LO, 28,) 0.18/0.215/ 0.25 mg-25 mcg tablet 2021-08 0-24 00:00: 00 Yes [id number] 1{tbl} Take 1 tablet by mouth in the morning. [facility] norgestimat e-ethinyl estradioL (ORTHO TRI-CYCLEN LO, 28,) 0.18/0.215/ 0.25 mg-25 mcg tablet 2021-08 0-24 00:00: 00 Yes [id number] 1{tbl} Take 1 tablet by mouth in the morning. [facility] norgestimat e-ethinyl estradioL (ORTHO TRI-CYCLEN LO, 28,) 0.18/0.215/ 0.25 mg-25 mcg tablet 2021-08 0-24 00:00: 00 Yes [id number] 1{tbl} Take 1 tablet by mouth in the morning. [facility] norgestimat e-ethinyl estradioL (ORTHO TRI-CYCLEN LO, 28,) 0.18/0.215/ 0.25 mg-25 mcg tablet 2021-08 0-24 00:00: 00 Yes [id number] 1{tbl} Take 1 tablet by mouth in the morning. [facility] norgestimat e-ethinyl estradioL (ORTHO TRI-CYCLEN LO, 28,) 0.18/0.215/ 0.25 mg-25 mcg tablet 2021-08 0-24 00:00: 00 Yes [id number] 1{tbl} Take 1 tablet by mouth in the morning. [facility] norgestimat e-ethinyl estradioL (ORTHO TRI-CYCLEN LO, 28,) 0.18/0.215/ 0.25 mg-25 mcg tablet 2021-08 0-24 00:00: 00 Yes [id number] 1{tbl} Take 1 tablet by mouth in the morning. [facility] norgestimat e-ethinyl estradioL (ORTHO TRI-CYCLEN LO, 28,) 0.18/0.215/ 0.25 mg-25 mcg tablet 2021-08 0-24 00:00: 00 Yes [id number] 1{tbl} Take 1 tablet by mouth in the morning. [facility] norgestimat e-ethinyl estradioL (ORTHO TRI-CYCLEN LO, 28,) 0.18/0.215/ 0.25 mg-25 mcg tablet 2021-08 0-24 00:00: 00 Yes [id number] 1{tbl} Take 1 tablet by mouth in the morning. [facility] norgestimat e-ethinyl estradioL (ORTHO TRI-CYCLEN LO, 28,) 0.18/0.215/ 0.25 mg-25 mcg tablet 2021-08 0-24 00:00: 00 Yes [id number] 1{tbl} Take 1 tablet by mouth in the morning. [facility] norgestimat e-ethinyl estradioL (ORTHO TRI-CYCLEN LO, 28,) 0.18/0.215/ 0.25 mg-25 mcg tablet 2021-08 0-24 00:00: 00 Yes [id number] 1{tbl} Take 1 tablet by mouth in the morning. [facility] norgestimat e-ethinyl estradioL (ORTHO TRI-CYCLEN LO, 28,) 0.18/0.215/ 0.25 mg-25 mcg tablet 2021-08 024 00:00: 00 Yes [id number] 1{tbl} Take 1 tablet by mouth in the morning. [facility] norgestimat e-ethinyl estradioL (ORTHO TRI-CYCLEN LO, 28,) 0.18/0.215/ 0.25 mg-25 mcg tablet 2021-08 024 00:00: 00 Yes [id number] 1{tbl} Take 1 tablet by mouth in the morning. [facility] norgestimat e-ethinyl estradioL (ORTHO TRI-CYCLEN LO, 28,) 0.18/0.215/ 0.25 mg-25 mcg tablet 2021-08 0-24 00:00: 00 Yes [id number] 1{tbl} Take 1 tablet by mouth in the morning. [facility] norgestimat e-ethinyl estradioL (ORTHO TRI-CYCLEN LO, 28,) 0.18/0.215/ 0.25 mg-25 mcg tablet 2021-08 0-24 00:00: 00 Yes [id number] 1{tbl} Take 1 tablet by mouth in the morning. [facility] norgestimat e-ethinyl estradioL (ORTHO TRI-CYCLEN LO, 28,) 0.18/0.215/ 0.25 mg-25 mcg tablet 2021-08 0-24 00:00: 00 Yes [id number] 1{tbl} Take 1 tablet by mouth in the morning. [facility] No known medications 2021-08 020 11:06: 36 No No known medication s [facility] No known medications 2021-08 0-05 12:45: 48 No No known medication s [facility] No known medications 2021-08 005 12:45: 48 No No known medication s [facility] No known medications 2021-08 0 12:45: 48 No No known medication s [facility] No known medications 2021-08 005 12:45: 48 No No known medication s [facility] metroNIDAZO LE 500 mg tablet 2021-08 00:00: 00 06-09 04:59 :00 No [id number] 500mg Take 1 tablet by mouth every 12 (twelve) hours for 7 days. [facility] metroNIDAZO LE 500 mg tablet 2021-08 00:00: 00 06-09 04:59 :00 No [id number] 500mg Take 1 tablet by mouth every 12 (twelve) hours for 7 days. [facility] metroNIDAZO LE 500 mg tablet 2021-08 00:00: 00 06-09 04:59 :00 No [id number] 500mg Take 1 tablet by mouth every 12 (twelve) hours for 7 days. [facility] No known medications 03-10 10:46: 58 No No known medication s [facility] No known medications 03-10 10:46: 58 No No known medication s [facility] Etonogestre l (IMPLANON SC) 01-31 15:56: 35 01-31 00:00 :00 No Inject into the skin Laurie Melvin Naproxen 500 MG oral Tablet 01-31 00:00: 00 Yes [id number] 500mg Take 1 tablet (500 mg total) by mouth in the morning and 1 tablet (500 mg total) in the evening. Take with meals. Laurie Melvin Etonogestre l (IMPLANON SC) 11-19 10:44: 15 Yes Inject into the skin Laurie Melvin Immunizations Ordered Immunization Name Filled Immunization Name Date Status Comments Source Influenza Virus Vaccine, Split, up to age 3 2020-08-10 00:00:00 Completed Laurie Melvin Tdap- (Boostrix, Adacel) 2017-12-29 00:00:00 Completed Laurie Melvin PPD-Protein Derivative (Purified)- Tuberculin 2017-11-15 00:00:00 Completed Laurie Melvin Influenza, Seasonal, Injectable, Preservative Free 2015-06-17 00:00:00 Completed Laurie Melvin Meningococcal Vaccine- Conjugate(Menactra) 2013-07-02 00:00:00 Completed Laurie Melvin Influenza, Seasonal, Injectable, Preservative Free 2013-06-17 00:00:00 Completed Laurie Melvin Influenza, Seasonal, Injectable, Preservative Free 2011-05-17 00:00:00 Completed aLurie Melvin HEPATITIS A- PEDI/ADOL 2009-10-13 00:00:00 Completed Laurie Melvin HPV 4 (Human Papillomavirus) 2009-10-13 00:00:00 Completed Laurie Melvin HPV 4 (Human Papillomavirus) 2009-06-01 00:00:00 Completed Laurie Melvin Influenza, Seasonal, Injectable, Preservative Free 2009-06-01 00:00:00 Completed Laurie Melvin HEPATITIS A- PEDI/ADOL 2009-03-02 00:00:00 Completed Laurie Melvin HPV 4 (Human Papillomavirus) 2009-03-02 00:00:00 Completed Laurie Melvin Meningococcal Vaccine- Conjugate(Menactra) 2009-03-02 00:00:00 Completed Laurie Melvin Tdap- (Boostrix, Adacel) 2009-03-02 00:00:00 Completed Laurie Melvin Varicella Vaccine 2009-03-02 00:00:00 Completed Laurie Melvin DTP- Diphtheria,Tetanus,P ertussis 2001-04-03 00:00:00 Completed Laurie Melvin MMR- Measles, Mumps, Rubella 2001-04-03 00:00:00 Completed Laurie Melvin Polio Vaccine 2001-04-03 00:00:00 Completed Laurie Melvin HIB- Haemophilus Influenzae Type B 1998-06-12 00:00:00 Completed Laurie Seisaacbahkti DTP- Diphtheria,Tetanus,P ertussis 1998-06-12 00:00:00 Completed Laurie Seisaacbhakti MMR- Measles, Mumps, Rubella 1998-04-15 00:00:00 Completed Laurie Melvin Varicella Vaccine 1998-04-15 00:00:00 Completed Laurie Seisaacbhakti DTP- Diphtheria,Tetanus,P ertussis 1997 00:00:00 Completed Laurie Seisaacbhakti HIB- Haemophilus Influenzae Type B 1997 00:00:00 Completed Laurie isaacbhakti Hepatitis B, Unspecified 1997 00:00:00 Completed Lauriefrankie Quanold Polio Vaccine 1997 00:00:00 Completed Lauriefrankie Melvin HIB- Haemophilus Influenzae Type B 1997 00:00:00 Completed Laurie Seisaacbhakti DTP- Diphtheria,Tetanus,P ertussis 1997 00:00:00 Completed Laurie Seybold Polio Vaccine 1997 00:00:00 Completed Lauriefrankie Melvin HIB- Haemophilus Influenzae Type B 1997 00:00:00 Completed Laurie Seisaacbhakti DTP- Diphtheria,Tetanus,P ertussis 1997 00:00:00 Completed Laurie Seisaacbhakti Hepatitis B, Unspecified 1997 00:00:00 Completed Laurie Hoffmanybold Polio Vaccine 1997 00:00:00 Completed Laurie isaacbhakti Hepatitis B, Unspecified 1997 00:00:00 Completed Laurie kathia Haemophilus influenzae type b vaccine, conjugate unspecified formulation Unknown Completed [facility] Haemophilus influenzae type b vaccine, conjugate unspecified formulation Unknown Completed [facility] Haemophilus influenzae type b vaccine, conjugate unspecified formulation Unknown Completed [facility] Haemophilus influenzae type b vaccine, conjugate unspecified formulation Unknown Completed [facility] DTP Unknown Completed [facility] DTP Unknown Completed [facility] DTP Unknown Completed [facility] DTP Unknown Completed [facility] DTP Unknown Completed [facility] HEPATITIS A Unknown Completed [facility] HEPATITIS A Unknown Completed [facility] Hep B, Unspecified Formulation Unknown Completed [facility] Hep B, Unspecified Formulation Unknown Completed [facility] Hep B, Unspecified Formulation Unknown Completed [facility] Heamophilus Influenza B Unknown Completed [facility] Heamophilus Influenza B Unknown Completed [facility] Heamophilus Influenza B Unknown Completed [facility] Heamophilus Influenza B Unknown Completed [facility] HPV Unknown Completed [facility] HPV Unknown Completed [facility] HPV Unknown Completed [facility] Influenza Virus Vaccine Quad IM Multi-dose 6+ MO Unknown Completed [facility] Flu Trivalent Unknown Completed [facility] Flu Trivalent Unknown Completed [facility] Flu Trivalent Unknown Completed [facility] Flu Trivalent Unknown Completed [facility] Meningococcal Polysaccharide (groups A, C, Y and W-135) conjugate vaccine (MCV4P) Unknown Completed [facility] Meningococcal Polysaccharide (groups A, C, Y and W-135) conjugate vaccine (MCV4P) Unknown Completed [facility] MMR Unknown Completed [facility] MMR Unknown Completed [facility] Polio (IPV/OPV) Unknown Completed [facility] Polio (IPV/OPV) Unknown Completed [facility] Polio (IPV/OPV) Unknown Completed [facility] Polio (IPV/OPV) Unknown Completed [facility] PPD (TB) Unknown Completed [facility] TDAP Unknown Completed [facility] TDAP Unknown Completed [facility] Varicella (varivax)(chicken pox) Unknown Completed [facility] Varicella (varivax)(chicken pox) Unknown Completed [facility] Haemophilus influenzae type b vaccine, conjugate unspecified formulation Unknown Completed [facility] Haemophilus influenzae type b vaccine, conjugate unspecified formulation Unknown Completed [facility] Haemophilus influenzae type b vaccine, conjugate unspecified formulation Unknown Completed [facility] Haemophilus influenzae type b vaccine, conjugate unspecified formulation Unknown Completed [facility] DTP Unknown Completed [facility] DTP Unknown Completed [facility] DTP Unknown Completed [facility] DTP Unknown Completed [facility] DTP Unknown Completed [facility] HEPATITIS A Unknown Completed [facility] HEPATITIS A Unknown Completed [facility] Hep B, Unspecified Formulation Unknown Completed [facility] Hep B, Unspecified Formulation Unknown Completed [facility] Hep B, Unspecified Formulation Unknown Completed [facility] Heamophilus Influenza B Unknown Completed [facility] Heamophilus Influenza B Unknown Completed [facility] Heamophilus Influenza B Unknown Completed [facility] Heamophilus Influenza B Unknown Completed [facility] HPV Unknown Completed [facility] HPV Unknown Completed [facility] HPV Unknown Completed [facility] Influenza Virus Vaccine Quad IM Multi-dose 6+ MO Unknown Completed [facility] Flu Trivalent Unknown Completed [facility] Flu Trivalent Unknown Completed [facility] Flu Trivalent Unknown Completed [facility] Flu Trivalent Unknown Completed [facility] Meningococcal Polysaccharide (groups A, C, Y and W-135) conjugate vaccine (MCV4P) Unknown Completed [facility] Meningococcal Polysaccharide (groups A, C, Y and W-135) conjugate vaccine (MCV4P) Unknown Completed [facility] MMR Unknown Completed [facility] MMR Unknown Completed [facility] Polio (IPV/OPV) Unknown Completed [facility] Polio (IPV/OPV) Unknown Completed [facility] Polio (IPV/OPV) Unknown Completed [facility] Polio (IPV/OPV) Unknown Completed [facility] PPD (TB) Unknown Completed [facility] TDAP Unknown Completed [facility] TDAP Unknown Completed [facility] Varicella (varivax)(chicken pox) Unknown Completed [facility] Varicella (varivax)(chicken pox) Unknown Completed [facility] Haemophilus influenzae type b vaccine, conjugate unspecified formulation Unknown Completed [facility] Haemophilus influenzae type b vaccine, conjugate unspecified formulation Unknown Completed [facility] Haemophilus influenzae type b vaccine, conjugate unspecified formulation Unknown Completed [facility] Haemophilus influenzae type b vaccine, conjugate unspecified formulation Unknown Completed [facility] DTP Unknown Completed [facility] DTP Unknown Completed [facility] DTP Unknown Completed [facility] DTP Unknown Completed [facility] DTP Unknown Completed [facility] HEPATITIS A Unknown Completed [facility] HEPATITIS A Unknown Completed [facility] Hep B, Unspecified Formulation Unknown Completed [facility] Hep B, Unspecified Formulation Unknown Completed [facility] Hep B, Unspecified Formulation Unknown Completed [facility] Heamophilus Influenza B Unknown Completed [facility] Heamophilus Influenza B Unknown Completed [facility] Heamophilus Influenza B Unknown Completed [facility] Heamophilus Influenza B Unknown Completed [facility] HPV Unknown Completed [facility] HPV Unknown Completed [facility] HPV Unknown Completed [facility] Influenza Virus Vaccine Quad IM Multi-dose 6+ MO Unknown Completed [facility] Flu Trivalent Unknown Completed [facility] Flu Trivalent Unknown Completed [facility] Flu Trivalent Unknown Completed [facility] Flu Trivalent Unknown Completed [facility] Meningococcal Polysaccharide (groups A, C, Y and W-135) conjugate vaccine (MCV4P) Unknown Completed [facility] Meningococcal Polysaccharide (groups A, C, Y and W-135) conjugate vaccine (MCV4P) Unknown Completed [facility] MMR Unknown Completed [facility] MMR Unknown Completed [facility] Polio (IPV/OPV) Unknown Completed [facility] Polio (IPV/OPV) Unknown Completed [facility] Polio (IPV/OPV) Unknown Completed [facility] Polio (IPV/OPV) Unknown Completed [facility] PPD (TB) Unknown Completed [facility] TDAP Unknown Completed [facility] TDAP Unknown Completed [facility] Varicella (varivax)(chicken pox) Unknown Completed [facility] Varicella (varivax)(chicken pox) Unknown Completed [facility] Haemophilus influenzae type b vaccine, conjugate unspecified formulation Unknown Completed [facility] Haemophilus influenzae type b vaccine, conjugate unspecified formulation Unknown Completed [facility] Haemophilus influenzae type b vaccine, conjugate unspecified formulation Unknown Completed [facility] Haemophilus influenzae type b vaccine, conjugate unspecified formulation Unknown Completed [facility] DTP Unknown Completed [facility] DTP Unknown Completed [facility] DTP Unknown Completed [facility] DTP Unknown Completed [facility] DTP Unknown Completed [facility] HEPATITIS A Unknown Completed [facility] HEPATITIS A Unknown Completed [facility] Hep B, Unspecified Formulation Unknown Completed [facility] Hep B, Unspecified Formulation Unknown Completed [facility] Hep B, Unspecified Formulation Unknown Completed [facility] Heamophilus Influenza B Unknown Completed [facility] Heamophilus Influenza B Unknown Completed [facility] Heamophilus Influenza B Unknown Completed [facility] Heamophilus Influenza B Unknown Completed [facility] HPV Unknown Completed [facility] HPV Unknown Completed [facility] HPV Unknown Completed [facility] Influenza Virus Vaccine Quad IM Multi-dose 6+ MO Unknown Completed [facility] Flu Trivalent Unknown Completed [facility] Flu Trivalent Unknown Completed [facility] Flu Trivalent Unknown Completed [facility] Flu Trivalent Unknown Completed [facility] Meningococcal Polysaccharide (groups A, C, Y and W-135) conjugate vaccine (MCV4P) Unknown Completed [facility] Meningococcal Polysaccharide (groups A, C, Y and W-135) conjugate vaccine (MCV4P) Unknown Completed [facility] MMR Unknown Completed [facility] MMR Unknown Completed [facility] Polio (IPV/OPV) Unknown Completed [facility] Polio (IPV/OPV) Unknown Completed [facility] Polio (IPV/OPV) Unknown Completed [facility] Polio (IPV/OPV) Unknown Completed [facility] PPD (TB) Unknown Completed [facility] TDAP Unknown Completed [facility] TDAP Unknown Completed [facility] Varicella (varivax)(chicken pox) Unknown Completed [facility] Varicella (varivax)(chicken pox) Unknown Completed [facility] Haemophilus influenzae type b vaccine, conjugate unspecified formulation Unknown Completed [facility] Haemophilus influenzae type b vaccine, conjugate unspecified formulation Unknown Completed [facility] Haemophilus influenzae type b vaccine, conjugate unspecified formulation Unknown Completed [facility] Haemophilus influenzae type b vaccine, conjugate unspecified formulation Unknown Completed [facility] DTP Unknown Completed [facility] DTP Unknown Completed [facility] DTP Unknown Completed [facility] DTP Unknown Completed [facility] DTP Unknown Completed [facility] HEPATITIS A Unknown Completed [facility] HEPATITIS A Unknown Completed [facility] Hep B, Unspecified Formulation Unknown Completed [facility] Hep B, Unspecified Formulation Unknown Completed [facility] Hep B, Unspecified Formulation Unknown Completed [facility] Heamophilus Influenza B Unknown Completed [facility] Heamophilus Influenza B Unknown Completed [facility] Heamophilus Influenza B Unknown Completed [facility] Heamophilus Influenza B Unknown Completed [facility] HPV Unknown Completed [facility] HPV Unknown Completed [facility] HPV Unknown Completed [facility] Influenza Virus Vaccine Quad IM Multi-dose 6+ MO Unknown Completed [facility] Flu Trivalent Unknown Completed [facility] Flu Trivalent Unknown Completed [facility] Flu Trivalent Unknown Completed [facility] Flu Trivalent Unknown Completed [facility] Meningococcal Polysaccharide (groups A, C, Y and W-135) conjugate vaccine (MCV4P) Unknown Completed [facility] Meningococcal Polysaccharide (groups A, C, Y and W-135) conjugate vaccine (MCV4P) Unknown Completed [facility] MMR Unknown Completed [facility] MMR Unknown Completed [facility] Polio (IPV/OPV) Unknown Completed [facility] Polio (IPV/OPV) Unknown Completed [facility] Polio (IPV/OPV) Unknown Completed [facility] Polio (IPV/OPV) Unknown Completed [facility] PPD (TB) Unknown Completed [facility] TDAP Unknown Completed [facility] TDAP Unknown Completed [facility] Varicella (varivax)(chicken pox) Unknown Completed [facility] Varicella (varivax)(chicken pox) Unknown Completed [facility] Haemophilus influenzae type b vaccine, conjugate unspecified formulation Unknown Completed [facility] Haemophilus influenzae type b vaccine, conjugate unspecified formulation Unknown Completed [facility] Haemophilus influenzae type b vaccine, conjugate unspecified formulation Unknown Completed [facility] Haemophilus influenzae type b vaccine, conjugate unspecified formulation Unknown Completed [facility] DTP Unknown Completed [facility] DTP Unknown Completed [facility] DTP Unknown Completed [facility] DTP Unknown Completed [facility] DTP Unknown Completed [facility] HEPATITIS A Unknown Completed [facility] HEPATITIS A Unknown Completed [facility] Hep B, Unspecified Formulation Unknown Completed [facility] Hep B, Unspecified Formulation Unknown Completed [facility] Hep B, Unspecified Formulation Unknown Completed [facility] Heamophilus Influenza B Unknown Completed [facility] Heamophilus Influenza B Unknown Completed [facility] Heamophilus Influenza B Unknown Completed [facility] Heamophilus Influenza B Unknown Completed [facility] HPV Unknown Completed [facility] HPV Unknown Completed [facility] HPV Unknown Completed [facility] Influenza Virus Vaccine Quad IM Multi-dose 6+ MO Unknown Completed [facility] Flu Trivalent Unknown Completed [facility] Flu Trivalent Unknown Completed [facility] Flu Trivalent Unknown Completed [facility] Flu Trivalent Unknown Completed [facility] Meningococcal Polysaccharide (groups A, C, Y and W-135) conjugate vaccine (MCV4P) Unknown Completed [facility] Meningococcal Polysaccharide (groups A, C, Y and W-135) conjugate vaccine (MCV4P) Unknown Completed [facility] MMR Unknown Completed [facility] MMR Unknown Completed [facility] Polio (IPV/OPV) Unknown Completed [facility] Polio (IPV/OPV) Unknown Completed [facility] Polio (IPV/OPV) Unknown Completed [facility] Polio (IPV/OPV) Unknown Completed [facility] PPD (TB) Unknown Completed [facility] TDAP Unknown Completed [facility] TDAP Unknown Completed [facility] Varicella (varivax)(chicken pox) Unknown Completed [facility] Varicella (varivax)(chicken pox) Unknown Completed [facility] Haemophilus influenzae type b vaccine, conjugate unspecified formulation Unknown Completed [facility] Haemophilus influenzae type b vaccine, conjugate unspecified formulation Unknown Completed [facility] Haemophilus influenzae type b vaccine, conjugate unspecified formulation Unknown Completed [facility] Haemophilus influenzae type b vaccine, conjugate unspecified formulation Unknown Completed [facility] DTP Unknown Completed [facility] DTP Unknown Completed [facility] DTP Unknown Completed [facility] DTP Unknown Completed [facility] DTP Unknown Completed [facility] HEPATITIS A Unknown Completed [facility] HEPATITIS A Unknown Completed [facility] Hep B, Unspecified Formulation Unknown Completed [facility] Hep B, Unspecified Formulation Unknown Completed [facility] Hep B, Unspecified Formulation Unknown Completed [facility] Heamophilus Influenza B Unknown Completed [facility] Heamophilus Influenza B Unknown Completed [facility] Heamophilus Influenza B Unknown Completed [facility] Heamophilus Influenza B Unknown Completed [facility] HPV Unknown Completed [facility] HPV Unknown Completed [facility] HPV Unknown Completed [facility] Influenza Virus Vaccine Quad IM Multi-dose 6+ MO Unknown Completed [facility] Flu Trivalent Unknown Completed [facility] Flu Trivalent Unknown Completed [facility] Flu Trivalent Unknown Completed [facility] Flu Trivalent Unknown Completed [facility] Meningococcal Polysaccharide (groups A, C, Y and W-135) conjugate vaccine (MCV4P) Unknown Completed [facility] Meningococcal Polysaccharide (groups A, C, Y and W-135) conjugate vaccine (MCV4P) Unknown Completed [facility] MMR Unknown Completed [facility] MMR Unknown Completed [facility] Polio (IPV/OPV) Unknown Completed [facility] Polio (IPV/OPV) Unknown Completed [facility] Polio (IPV/OPV) [facility]) [facility] Com[facility] PPD (TB) Unknown Completed [facility] TDAP Unknown Completed [facility] TDAP Unknown Completed [facility] Varicella (varivax)(chicken pox) Unknown Completed [facility] Varicella (varivax)(chicken pox) Unknown Completed [facility] Haemophilus influenzae type b vaccine, conjugate unspecified formulation Unknown Completed [facility] Haemophilus influenzae type b vaccine, conjugate unspecified formulation Unknown Completed [facility] Haemophilus influenzae type b vaccine, conjugate unspecified formulation Unknown Completed [facility] Haemophilus influenzae type b vaccine, conjugate unspecified formulation Unknown Completed [facility] DTP Unknown Completed [facility] DTP Unknown Completed [facility] DTP Unknown Completed [facility] DTP Unknown Completed [facility] DTP Unknown Completed [facility] HEPATITIS A Unknown Completed [facility] HEPATITIS A Unknown Completed [facility] Hep B, Unspecified Formulation Unknown Completed [facility] Hep B, Unspecified Formulation Unknown Completed [facility] Hep B, Unspecified Formulation Unknown Completed [facility] Heamophilus Influenza B Unknown Completed [facility] Heamophilus Influenza B Unknown Completed [facility] Heamophilus Influenza B Unknown Completed [facility] Heamophilus Influenza B Unknown Completed [facility] HPV Unknown Completed [facility] HPV Unknown Completed [facility] HPV Unknown Completed [facility] Influenza Virus Vaccine Quad IM Multi-dose 6+ MO Unknown Completed [facility] Flu Trivalent Unknown Com[facility]alent [facility] Completed [facility] Meningococcal Polysaccharide (groups A, C, Y and W-135) conjugate vaccine (MCV4P) Unknown Completed [facility] Meningococcal Polysaccharide (groups A, C, Y and W-135) conjugate vaccine (MCV4P) Unknown Completed [facility] MMR Unknown Completed [facility] MMR Unknown Completed [facility] Polio (IPV/OPV) Unknown Completed [facility] Polio (IPV/OPV) Unknown Completed [facility] Polio (IPV/OPV) [facility] Pol[facility] ([facility]V) [facility] Completed [facility] PPD (TB) Unknown Completed [facility] TDAP Unknown Completed [facility] TDAP Unknown Completed [facility] Varicella (varivax)(chicken pox) Unknown Completed [facility] Varicella (varivax)(chicken pox) Unknown Completed [facility] Haemophilus influenzae type b vaccine, conjugate unspecified formulation Unknown Completed [facility] Haemophilus influenzae type b vaccine, conjugate unspecified formulation Unknown Completed [facility] Haemophilus influenzae type b vaccine, conjugate unspecified formulation Unknown Completed [facility] Haemophilus influenzae type b vaccine, conjugate unspecified formulation Unknown Completed [facility] DTP Unknown Completed [facility] DTP Unknown Completed [facility] DTP Unknown Completed [facility] DTP Unknown Completed [facility] DTP Unknown Completed [facility] HEPATITIS A Unknown Completed [facility] HEPATITIS A Unknown Completed [facility] Hep B, Unspecified Formulation Unknown Completed [facility] Hep B, Unspecified Formulation Unknown Completed [facility] Hep B, Unspecified Formulation Unknown Completed [facility] Heamophilus Influenza B Unknown Completed [facility] Heamophilus Influenza B Unknown Completed [facility] Heamophilus Influenza B Unknown Completed [facility] Heamophilus Influenza B Unknown Completed [facility] HPV Unknown Completed [facility] HPV Unknown Completed [facility] HPV Unknown Completed [facility] Influenza Virus Vaccine Quad IM Multi-dose 6+ MO Unknown Completed [facility] Flu Trivalent Unknown Completed [facility] Flu Trivalent Unknown Completed [facility] Flu [facility]alent [facility] Meningococcal Polysaccharide (groups A, C, Y and W-135) conjugate vaccine (MCV4P) Unknown Completed [facility] Meningococcal Polysaccharide (groups A, C, Y and W-135) conjugate vaccine (MCV4P) Unknown Completed [facility] MMR Unknown Completed [facility] MMR Unknown Completed [facility] Polio (IPV/OPV) Unknown [facility] Polio (IPV[facility]V) Unknown Completed [facility] Polio (IPV/OPV) Unknown Completed [facility] Polio (IPV/OPV) Unknown Completed [facility] PPD (TB) Unknown Completed [facility] TDAP Unknown Completed [facility] TDAP Unknown Completed [facility] Varicella (varivax)(chicken pox) Unknown Completed [facility] Varicella (varivax)(chicken pox) Unknown Completed [facility] Haemophilus influenzae type b vaccine, conjugate unspecified formulation Unknown Completed [facility] Haemophilus influenzae type b vaccine, conjugate unspecified formulation Unknown Completed [facility] Haemophilus influenzae type b vaccine, conjugate unspecified formulation Unknown Completed [facility] Haemophilus influenzae type b vaccine, conjugate unspecified formulation Unknown Completed [facility] DTP Unknown Completed [facility] DTP Unknown Completed [facility] DTP Unknown Completed [facility] DTP Unknown Completed [facility] DTP Unknown Completed [facility] HEPATITIS A Unknown Completed [facility] HEPATITIS A Unknown Completed [facility] Hep B, Unspecified Formulation Unknown Completed [facility] Hep B, Unspecified Formulation Unknown Completed [facility] Hep B, Unspecified Formulation Unknown Completed [facility] Heamophilus Influenza B Unknown Completed [facility] Heamophilus Influenza B Unknown Completed [facility] Heamophilus Influenza B Unknown Completed [facility] Heamophilus Influenza B Unknown Completed [facility] HPV Unknown Completed [facility] HPV Unknown Completed [facility] HPV Unknown Completed [facility] Influenza Virus Vaccine Quad IM Multi-dose 6+ MO Unknown Completed [facility] Flu Trivalent Unknown Completed [facility] Flu Trivalent Unknown Completed [facility] Flu Trivalent Unknown Completed [facility] Flu Trivalent Unknown Completed [facility] Meningococcal Polysaccharide (groups A, C, Y and W-135) conjugate vaccine (MCV4P) Unknown Completed [facility] Meningococcal Polysaccharide (groups A, C, Y and W-135) conjugate vaccine (MCV4P) Unknown Completed [facility] MMR Unknown Completed [facility] MMR Unknown Completed [facility] Polio (IPV/OPV) Unknown Completed [facility] Polio (IPV/OPV) Unknown Completed [facility] Polio (IPV/OPV) Unknown Completed [facility] Polio (IPV/OPV) Unknown Completed [facility] PPD (TB) Unknown Completed [facility] TDAP Unknown Completed [facility] TDAP Unknown Completed [facility] Varicella (varivax)(chicken pox) Unknown Completed [facility] Varicella (varivax)(chicken pox) Unknown Completed [facility] Haemophilus influenzae type b vaccine, conjugate unspecified formulation Unknown Completed [facility] Haemophilus influenzae type b vaccine, conjugate unspecified formulation Unknown Completed [facility] Haemophilus influenzae type b vaccine, conjugate unspecified formulation Unknown Completed [facility] Haemophilus influenzae type b vaccine, conjugate unspecified formulation Unknown Completed [facility] DTP Unknown Completed [facility] DTP Unknown Completed [facility] DTP Unknown Completed [facility] DTP Unknown Completed [facility] DTP Unknown Completed [facility] HEPATITIS A Unknown Completed [facility] HEPATITIS A Unknown Completed [facility] Hep B, Unspecified Formulation Unknown Completed [facility] Hep B, Unspecified Formulation Unknown Completed [facility] Hep B, Unspecified Formulation Unknown Completed [facility] Heamophilus Influenza B Unknown Completed [facility] Heamophilus Influenza B Unknown Completed [facility] Heamophil[facility] Influenza B Unknown Completed [facility] Heamophilus Influenza B Unknown Completed [facility] HPV Unknown Completed [facility] HPV Unknown Completed [facility] HPV Unknown Completed [facility] Influenza Virus Vaccine Quad IM Multi-dose 6+ MO Unknown Completed [facility] Flu Trivalent Unknown Completed [facility] Flu Trivalent Unknown Completed [facility] Flu Trivalent Unknown Completed [facility] Flu Trivalent Unknown Completed [facility] Meningococcal Polysaccharide (groups A, C, Y and W-135) conjugate vaccine (MCV4P) Unknown Completed [facility] Meningococcal Polysaccharide (groups A, C, Y and W-135) conjugate vaccine (MCV4P) Unknown Completed [facility] MMR Unknown Completed [facility] MMR Unknown Completed [facility] Polio (IPV/OPV) Unknown Completed [facility] Polio (IPV/OPV) Unknown Completed [facility] Polio (IPV/OPV) Unknown Completed [facility] Polio (IPV/OPV) Unknown Completed [facility] PPD (TB) Unknown Completed [facility] TDAP Unknown Completed [facility] TDAP Unknown Completed [facility] Varicella (varivax)(chicken pox) Unknown Completed [facility] Varicella (varivax)(chicken pox) Unknown Completed [facility] Vital Signs Vital Name Observation Time Observation Value Comments S ource Systolic blood pressure 2023-11-16 13:17:00 101 mm[Hg] [facility] Diastolic blood pressure 2023-11-16 13:17:00 68 mm[Hg] [facility] Heart rate 2023-11-16 13:17:00 85 /min [facility] Body temperature 2023-11-16 13:17:00 36.5 Shira [facility] Respiratory rate 2023-11-16 13:17:00 16 /min [facility] Body height 2023-11-16 13:17:00 154.9 cm [facility] Body weight 2023-11-16 13:17:00 78.472 kg [facility] BMI 2023-11-16 13:17:00 32.69 kg/m2 [facility] Systolic blood pressure 2023-10-17 14:09:00 136 mm[Hg] [facility] Diastolic blood pressure 2023-10-17 14:09:00 76 mm[Hg] [facility] Heart rate 2023-10-17 14:09:00 85 /min Unive [facility] Body temperature 2023-10-17 14:09:00 36.72 Shira [facility] Respiratory rate 2023-10-17 14:09:00 16 /min [facility] Body height 2023-10-17 14:09:00 154.9 cm [facility] Body weight 2023-10-17 14:09:00 80.105 kg [facility] BMI 2023-10-17 14:09:00 33.37 kg[facility] 2023-09-21 14:46:00 114 mm[Hg] [facility] Diastolic blood pressure 2023-09-21 14:46:00 76 mm[Hg] [facility] Heart rate 2023-09-21 14:46:00 81 /min Unive [facility] Respiratory rate 2023-09-21 14:46:00 18 /min [facility] Body height 2023-09-21 14:46:00 154.9 cm [facility] Body weight 2023-09-21 14:46:00 81.647 kg Univ [facility] BMI 2023-09-21 14:46:00 34.01 kg/m2 [facility] Systolic blood pressure 2023-06-06 18:33:00 118 mm[Hg] [facility] Diastolic blood pressure 2023-06-06 18:33:00 79 mm[Hg] [facility] Heart rate 2023-06-06 18:33:00 66 /min Unive [facility] Respiratory rate 2023-06-06 18:33:00 18 /min [facility] Body height 2023-06-06 18:33:00 156.2 cm [facility] Body weight 2023-06-06 18:33:00 83.915 kg [facility] BMI 2023-06-06 18:33:00 34.39 kg/m2 [facility] Systolic blood pressure 2023-04-13 16:25:00 128 mm[Hg] [facility] Diastolic blood pressure 2023-04-13 16:25:00 88 mm[Hg] [facility] Heart rate 2023-04-13 16:25:00 74 /min Unive [facility] Body temperature 2023-04-13 16:25:00 36.94 Shira [facility] Respiratory rate 2023-04-13 16:25:00 16 /min [facility] Body weight 2023-04-13 16:25:00 81.194 kg [facility] BMI 2023-04-13 16:25:00 33.27 kg/m2 [facility] Oxygen saturation in Arterial blood by Pulse oximetry 2023-04-13 16:25:00 99 /min [facility] Systolic blood pressure 2023-02-27 14:52:00 139 mm[Hg] [facility] Diastolic blood pressure 2023-02-27 14:52:00 87 mm[Hg] [facility] Heart rate 2023-02-27 14:52:00 92 /min [facility] Body temperature 2023-02-27 14:52:00 36.39 Shira [facility] Respiratory rate 2023-02-27 14:52:00 16 /min [facility] Body weight 2023-02-27 14:52:00 79.833 kg [facility] BMI 2023-02-27 14:52:00 32.72 kg/m2 [facility] Oxygen saturation in Arterial blood by Pulse oximetry 2023-02-27 14:52:00 97 /min [facility] Systolic blood pressure 2022-06-20 16:44:00 116 mm[Hg] [facility] Diastolic blood pressure 2022-06-20 16:44:00 78 mm[Hg] [facility] Heart rate 2022-06-20 16:44:00 69 /min [facility] acute hospital Body temperature 2022-06-20 16:44:00 36.72 Shira [facility] Respiratory rate 2022-06-20 16:44:00 16 /min [facility] Body height 2022-06-20 16:44:00 156.2 cm [facility] Body weight 2022-06-20 16:44:00 78.427 kg [facility] BMI 2022-06-20 16:44:00 32.14 kg/m2 [facility] Oxygen saturation in Arterial blood by Pulse oximetry 2022-06-20 16:44:00 99 /min [facility] Systolic blood pressure 2022-06-16 16:05:00 127 mm[Hg] [facility] Diastolic blood pressure 2022-06-16 16:05:00 82 mm[Hg] [facility] Heart rate 2022-06-16 16:05:00 81 /min Unive [facility] Body temperature 2022-06-16 16:05:00 36.44 Shira [facility] Respiratory rate 2022-06-16 16:05:00 16 /min [facility] Body height 2022-06-16 16:05:00 156.2 cm [facility] Body weight 2022-06-16 16:05:00 76.431 kg [facility] BMI 2022-06-16 16:05:00 31.32 kg/m2 [facility] Oxygen saturation in Arterial blood by Pulse oximetry 2022-06-16 16:05:00 96 /min [facility] Systolic blood pressure 2022-05-31 20:03:00 107 mm[Hg] [facility] Diastolic blood pressure 2022-05-31 20:03:00 72 mm[Hg] [facility] Heart rate 2022-05-31 20:03:00 64 /min Unive [facility] Body temperature 2022-05-31 20:03:00 36.28 Shira [facility] Respiratory rate 2022-05-31 20:03:00 18 /min [facility] Body height 2022-05-31 20:03:00 156.2 cm [facility] Body weight 2022-05-31 20:03:00 76.658 kg [facility] BMI 2022-05-31 20:03:00 31.42 kg/m2 [facility] Systolic blood pressure 2022-03-10 15:42:00 114 mm[Hg] [facility] Diastolic blood pressure 2022-03-10 15:42:00 80 mm[Hg] [facility] Heart rate 2022-03-10 15:42:00 74 /min [facility] acute hospital Body height 2022-03-10 15:42:00 154.9 cm [facility] Body weight 2022-03-10 15:42:00 75.297 kg [facility] BMI 2022-03-10 15:42:00 31.37 kg/m2 [facility] Oxygen saturation in Arterial blood by Pulse oximetry 2022-03-10 15:42:00 96 /min [place] [facility] Systolic blood pressure 2022-01-31 20:51:00 112 mm[Hg] Laurie [facility]bo [facility] Diastolic blood pressure 2022-01-31 20:51:00 74 mm[Hg] [facility] Heart rate 2022-01-31 20:51:00 82 /min Kel y ybold Body temperature 2022-01-31 20:51:00 36.78 Shira Laurie Seybold Respiratory rate 2022-01-31 20:51:00 16 /min Laurie Seybold Body height 2022-01-31 20:51:00 154.9 cm Eneida ey Seybold Body weight 2022-01-31 20:51:00 75.297 kg Eneida ey Seybold BMI 2022-01-31 20:51:00 31.37 kg/m2 Eneida ey Seybold Procedures Procedure Date / Time Performed Performing Clinician Source CONSENT/REFUSAL FOR DIAGNOSIS AND TREATMENT 2023-11-16 13:04:04 Doctor Unassigned, [place] [facility] POCT URINALYSIS W/O SPECIFIC GRAVITY 2023-11-16 00:00:00 Елена Munoz [facility] acute [facility] SCANNED LAB RESULTS 2023-10-17 06:01:00 Doctor Ilana deras, [place] [facility] POCT URINALYSIS W/O SPECIFIC GRAVITY 2023-10-17 00:00:00 Елена Munoz [facility] CBC WITH DIFF 2023-09-30 16:21:00 Arnel Munoz [facility] GLYCOSYLATED HEMOGLOBIN (A1C) 2023-09-30 16:21:00 Елена Munoz [facility] US OB TRANSVAGINAL 2023-09-21 15:23:28 Ayah Munoz [facility] [employer] AND [employer] CLERK CLINIC ULTRASOUND 2023-09-21 06:01:00 Doctor Unassigned, [place] [facility] POCT TEST 2023-09-21 00:00:00 Елена Munoz [facility] POCT URINALYSIS W/O SPECIFIC GRAVITY 2023-09-21 00:00:00 Елена Munoz [facility] acute hospital CONSENT/REFUSAL FOR DIAGNOSIS AND TREATMENT 2023-06-15 14:31:09 Doctor Unassigned, [place] [facility] POCT SARS-COV-2 ANTIGEN (BINAX NOW) 2023-04-13 16:26:00 Aimee Trujillo [facility] ASSIGNMENT OF BENEFITS 2023-04-13 16:10:17 Docto r Unassigned, [place] [facility] POCT TEST 2023-02-27 15:26:00 Thiago Garcia [facility] POCT MOLECULAR STREP 2023-02-27 14:51:00 Unknown, Atte larry [facility] DISCLOSURE AND CONSENT, MEDICAL AND SURGICAL PROCEDURES 2022-06-20 05:01:00 Doctor Unassigned, [place] [facility] POCT TEST 2022-06-20 00:00:00 Morteza London [facility] BI ULTRASOUND BREAST COMPLETE RIGHT 2022-06-10 18:17:10 Alda London [facility] US PELVIS COMPLETE WITH TRANSVAGINAL 2022-06-08 23:02:28 Alda London [facility] PHYSICIAN ORDERS 2022-06-07 05:01:00 Doctor Unas signed, [place] [facility] PAP SMEAR-LIQUID BASED-CP 2022-05-31 20:16:00 Alda London [facility] Encounters Start Date/Time End Date/Time Encounter Type Admission Type Attending [facility] Care Department Encounter ID Source 2023-11-18 10:00:00 2023-11-18 10:00:00 Outpatient R ЕЛЕНА STEWART [facility] [id number] [facility] 2023-11-16 08:00:00 2023-11-16 08:35:23 Outpatient R ЕЛЕНА STEWART [facility] [id number] [facility] 2023-11-16 08:00:00 2023-11-16 08:35:23 Routine Visit [facility] 1.0.114 350.1.13.10 4.2.7.2.686 [id number] [facility] 2023-11-16 00:00:00 2023-11-16 00:00:00 Orders Only Doctor Unassigned, [place] [facility] 1.840.114 350.1.13.10 4.2.7.2.686 [id number] [id number] [facility] 2023-10-30 00:00:00 2023-10-30 00:00:00 Telephone Laura reed [facility] 1.840.114 350.1.13.10 4.2.7.2.686 [id number] [facility] 2023-10-23 00:00:00 2023-10-23 00:00:00 Telephone Laura reed [facility] 1.840.114 350.1.13.10 4.2.7.2.686 [id number] [facility] 2023-10-17 09:45:00 2023-10-17 10:00:00 Bottle Filler Visit Lab, Yony Salgado Laura reed [facility] 1.840.114 350.1.13.10 4.2.7.2.686 [id number] [facility] 2023-10-17 08:00:00 2023-10-17 08:19:58 Outpatient R GARZAYOVANII S, ЕЛЕНА GARZA-ORION S ЕЛЕНА [facility] [id number] [facility] 2023-10-17 08:00:00 2023-10-17 08:19:58 [facility] 1.2840.114 350.1.13.10 4.2.7.2.686 [id number] [facility] 2023-10-17 00:00:00 2023-10-17 00:00:00 Orders Only Doctor Unassigned, [place] [facility] 1.840.114 350.1.13.10 4.2.7.2.686 [id number] [id number] [facility] 2023-10-09 00:00:00 2023-10-09 00:00:00 Patient Secure Msg Laura reed [facility] 1.20.114 350.1.13.10 4.2.7.2.686 [id number] 134 [id number] [facility] 2023-09-30 10:00:00 2023-09-30 10:15:00 Bottle Filler Visit Pob, Adc Lab Main Laura reed Елена [facility] 1.2.114 350.1.13.10 4.2.7.2.686 [id number] [facility] 2023-09-30 10:00:00 2023-09-30 10:00:00 Outpatient R CATALINOI S, ЕЛЕНА GARZA-ORION S ЕЛЕНА [facility] [id number] [facility] 2023-09-21 09:00:00 2023-09-21 09:28:28 Outpatient R GARZAJAKE Reed, ЕЛЕНА ANDERSON [facility] [id number] [facility] 2023-09-21 09:00:00 2023-09-21 09:28:28 Initial Visit Елена [facility] 1.2.840.114 350.1.13.10 4.2.7.2.686 [id number] [facility] 2023-09-21 00:00:00 2023-09-21 00:00:00 Orders Only Doctor Unassigned, [place] [facility] 1.2840.114 350.1.13.10 4.2.7.2.686 [id number] [id number] [facility] 2023-06-19 16:13:00 2023-06-19 23:59:00 [facility] [id number] [facility] 2023-06-19 16:13:00 2023-06-19 23:59:00 Hospital Encounter Alda Londno [facility] 1.2840.114 350.1.13.10 4.2.7.2.686 [id number] [facility] 2023-06-15 09:45:00 2023-06-15 10:00:00 Bottle Filler Visit Keyon, Fer Lab Main Alda London [facility] 1.2840.114 350.1.13.10 4.2.7.2.686 [id number] [facility] 2023-06-15 09:45:00 2023-06-15 09:45:00 Outpatient R SURYA [facility] [id number] [facility] 2023-06-15 00:00:00 2023-06-15 00:00:00 Orders Only Doctor Unassigned, [place] [facility] 1.2840.114 350.1.13.10 4.2.7.2.686 [id number] [facility] 2023-06-07 00:00:00 2023-06-07 00:00:00 [facility] 1.2840.114 350.1.13.10 4.2.7.2.686 [id number] [facility] 2023-06-06 13:30:00 2023-06-06 14:06:28 [facility] [id number] [facility] 2023-06-06 13:30:00 2023-06-06 14:06:28 [facility] 1.2840.114 350.1.13.10 4.2.7.2.686 [id number] [facility] 2023-04-13 11:40:00 2023-04-13 11:40:00 Urgent Care Aimee Trujillo [facility] 1.2840.114 350.1.13.10 4.2.7.2.686 [id number] [facility] 2023-04-13 11:40:00 2023-04-13 11:33:50 Outpatient R AIMEE TRUJILLO [facility] [id number] [facility] 2023-04-13 00:00:00 2023-04-13 00:00:00 Orders Only Doctor Unassigned, [place] [facility] 1.2840.114 350.1.13.10 4.2.7.2.686 [id number] [facility] 2023-04-13 00:00:00 2023-04-13 00:00:00 Letter (Out) Aimee Trujillo [facility] 1..840.114 350.1.13.10 4.2.7.2.686 [id number] [facility] 2023-02-27 10:00:00 2023-02-27 10:34:28 Outpatient R ADIN DELANEY [facility] [id number] [facility] 2023-02-27 10:00:00 2023-02-27 10:34:28 Urgent Care Adin Delaney Unknown, Attending [facility] 1..840.114 350.1.13.10 4.2.7.2.686 [id number] [facility] 2022-09-13 11:30:00 2022-09-13 11:30:00 Outpatient R ALDA LONDON CHERYAL [facility] [id number] [facility] 2022-06-20 11:30:00 2022-06-20 12:02:15 Outpatient R ALDA LONDON CHERYAL [facility] [id number] [facility] 2022-06-20 11:30:00 2022-06-20 12:02:15 Office Visit Alda London [facility] 1.840.114 350.1.13.10 4.2.7.2.686 [id number] [facility] 2022-06-20 00:00:00 2022-06-20 00:00:00 Orders Only Doctor Unassigned, [place] [facility] 1.840.114 350.1.13.10 4.2.7.2.686 [id number] [facility] 2022-06-16 11:00:00 2022-06-16 11:15:43 Outpatient R ALDA LONDON CHERYAL [facility] [id number] [facility] 2022-06-16 11:00:00 2022-06-16 11:15:43 Office Visit Alda London [facility] 1.2.840.114 350.1.13.10 4.2.7.2.686 [id number] [facility] 2022-06-10 12:54:11 2022-06-10 23:59:00 Hospital Encounter Alda London [facility] 1.2.840.114 350.1.13.10 4.2.7.2.686 [id number] [facility] 2022-06-10 12:54:10 2022-06-10 23:59:00 Outpatient R ALDA LONDON [facility] [id number] [facility] 2022-06-08 17:24:06 2022-06-08 23:59:00 Outpatient R ALDA LONDON CHERYAL [facility] [id number] [facility] 2022-06-08 17:24:06 2022-06-08 23:59:00 Hospital Encounter Alda London [facility] 1.2.840.114 350.1.13.10 4.2.7.2.686 [id number] [facility] 2022-06-07 00:00:00 2022-06-07 00:00:00 Orders Only Doctor Unassigned, [place] [facility] 1.2.840.114 350.1.13.10 4.2.7.2.686 [id number] [facility] 2022-06-07 00:00:00 2022-06-07 00:00:[address] [facility] 1.2.840.114 350.1.13.10 4.2.7.2.686 [id number] [facility] 2022-06-01 00:00:00 2022-06-01 00:00:00 Case Management Surya [facility] 1.2.840.114 350.1.13.10 4.2.7.2.686 [id number] 134 [id number] [facility] 2022-06-01 00:00:00 2022-06-01 00:00:00 Telephone Surya [facility] 1.2.840.114 350.1.13.10 4.2.7.2.686 [id number] 134 [id number] [facility] 2022-05-31 15:45:00 2022-05-31 16:00:00 Bottle Filler Visit Lab, Yony - Damian Surya [facility] 1.2.840.114 350.1.13.10 4.2.7.2.686 [id number] [facility] 2022-05-31 15:00:00 2022-05-31 15:25:34 [facility] [id number] [facility] 2022-05-31 15:00:00 2022-05-31 15:25:34 Office Visit Surya [facility] 1.2.840.114 350.1.13.10 4.2.7.2.686 [id number] [facility] 2022-03-10 10:30:00 2022-03-10 12:12:47 Outpatient JUANCARLOS PERALES [facility] [id number] [facility] 2022-03-10 10:30:00 2022-03-10 12:12:47 Outpatient JUANCARLOS PERALES [facility] [id number] [facility] 2022-03-10 10:30:00 2022-03-10 12:12:47 Office Visit Juancarlos Lopes [facility] 1.2.840.114 350.1.13.10 4.2.7.2.686 [id number] [facility] 2022-02-16 00:00:00 2022-02-16 00:00:00 Outpatient MORGAN LUA [id number] Laurie kathia 2022-02-16 00:00:00 2022-02-16 00:00:00 Outpatient MORGAN LUA [id number] Laurie kathia 2022-01-31 16:00:00 2022-01-31 16:15:00 Office Visit Morgan Lua 1.2.840.114 350.1.13.13 1.2.7.2.686 [id number] Laurie kathia 2021-11-19 13:30:00 2021-11-19 13:30:00 Outpatient EDWARDO LAZO [id number] Laurie [facility] 2021-11-19 11:30:00 2021-11-19 12:08:43 Telemedici ne Axel Colbert [facility] 1..840.114 350.1.13.13 1.2.7.2.686 [id number] Laurie kathia 2021-11-19 00:00:00 2021-11-19 00:00:00 Outpatient AXEL COLBERT [id number] Laurie [facility] Results Test Description Test Time Test Comments Results Result Co mments [facility] w[facility]o Specific [id number] 14:05:00* Test Item Value Reference Range Interpretation Comme nts POCT PH U (test code = 3254) n/a 5-8 POCT U LEUK EST (test code = 3263) n/a Negative - Negative POCT U NIT (test code = 3262) n/a Negative - Negati ve POCT U PROT (test code = 3259) negative Negative - Negat deisy POCT U GLU (test code = 3256) negative Negative - Negati ve POCT U KETONE (test code = 3258) n/a Negative - Neg ative POCT U BLD (test code = 3257) n/a Negative - Negati ve [facility] (A1C)2023-09-30 16:36:37* Test Item Value Reference Range Interpretation Comme nts HGB A1C (test code = 4548-4) 5.3 % 4.0-5.7 DENA (test code = DENA) Reference RangesNormal: <5.7%Prediabetes: 5.7 - 6.4%Diabetes: > 6.5% Lab Interpretation (test code = 74037-0) Normal [facility] with [id number] 16:26:11* Test Item Value Reference Range Interpretation Comme nts WBC (test code = 6690-2) 8.52 4.30-11.10 RBC (test code = 789-8) 3.93 3.93-5.25 HGB (test code = 718-7) 13.2 g/dL 11.6-15.0 HCT (test code = 4544-3) 36.9 % 35.7-45.2 MCV (test code = 787-2) 93.9 fL 80.6-95.5 MCH (test code = 785-6) 33.6 pg 25.9-32.8 H MCHC (test code = 786-4) 35.8 g/dL 31.6-35.1 H RDW-SD (test code = 94356-8) 41.0 fL 39.0-49.9 RDW-CV (test code = 788-0) 11.8 % 12.0-15.5 L PLT (test code = 777-3) 230 166-358 MPV (test code = 97475-9) 10.5 fL 9.5-12.9 NRBC/100 WBC (test code = 4327744852) 0.0 0.0-10.0 NRBC x10^3 (test code = 7924369697) See_Comment [Automated messa ge] The system which generated this result transmitted reference range: 10*3/?L. The reference range was not used to interpret this result as normal/abnormal. GRAN MAT (NEUT) % (test code = 770-8) 67.5 % IMM GRAN % (test code = 5715289222) 0.70 % LYMPH % (test code = 736-9) 22.1 % MONO % (test code = 5905-5) 8.5 % EOS % (test code = 713-8) 0.7 % BASO % (test code = 706-2) 0.5 % GRAN MAT x10^3(ANC) (test code = 2953853265) 5.76 10*3/uL 1.88-7.09 IMM GRAN x10^3 (test code = 3059414866) 0.06 10*3/uL 0.00-0.06 LYMPH x10^3 (test code = 731-0) 1.88 10*3/uL 1.32-3.29 MONO x10^3 (test code = 742-7) 0.72 10*3/uL 0.33-0.92 EOS x10^3 (test code = 711-2) 0.06 10*3/uL 0.03-0.39 BASO x10^3 (test code = 704-7) 0.04 10*3/uL 0.01-0.07 Lab Interpretation (test code = 47307-1) Abnormal [facility] Urinalysis w/o Specific [id number] 15:07:00* Test Item Value Reference Range Interpretation Comme nts POCT PH U (test code = 3254) N/A 5-8 POCT U LEUK EST (test code = 3263) N/A Negative - Negative POCT U NIT (test code = 3262) N/A Negative - Negati ve POCT U PROT (test code = 3259) Trace Negative - Negat deisy POCT U GLU (test code = 3256) Negative Negative - Negati ve POCT U KETONE (test code = 3258) N/A Negative - Neg ative POCT U BLD (test code = 3257) N/A Negative - Negati ve [facility] [id number] 15:06:00* Test Item Value Reference Range Interpretation Comme nts POCT PREG (test code = 1605) Positive On board controls acceptable with C Line (test code = 3574) Yes POCT PREG LOT # (test code = 3575) POCT PREG TEST DATE ( test code = 3576) [facility] SARS-COV-2 ANTIGEN (BINAX NOW)2023-04-13 16:41:00* Test Item Value Reference Range Interpretation Comme nts POCT SARS-COV-2 ANTIGEN (mino t code = 37373-9) Not Detected Not Detected On board controls acceptable with C Line (test code = 3574) Yes Lab Interpretation (test cod e = 30048-2) Normal [facility] [id number] 15:29:00* Test Item Value Reference Range Interpretation Comme nts POCT PREG (test code = 1605) Negative On board controls acceptable with C Line (test code = 3574) Yes POCT PREG LOT # (test code = 3575) POCT PREG TEST DATE ( test code = 3576) Lab Interpretation (test cod e = 25600-8) Normal [facility] MOLECULAR [id number] 14:59:21* Test Item Value Reference Range Interpretation Comme nts POCT Molecular Strep (test c ode = 97099-4) Negative Negative Lab Interpretation (test cod e = 49089-8) Normal [facility] [id number] 18:11:00* Test Item Value Reference Range Interpretation Comme nts POCT PREG (test code = 1605) Negative On board controls acceptable with C Line (test code = 3574) Yes POCT PREG LOT # (test code = 3575) POCT PREG TEST DATE ( test code = 3576) [facility] [id number] 18:11:00* Test Item Value Reference Range Interpretation Comme nts POCT PREG (test code = 1605) Negative On board controls acceptable with C Line (test code = 3574) Yes POCT PREG LOT # (test code = 3575) POCT PREG TEST DATE ( test code = 3576) [facility] [id number] 18:11:00* Test Item Value Reference Range Interpretation Comme nts POCT PREG (test code = 1605) Negative On board controls acceptable with C Line (test code = 3574) Yes POCT PREG LOT # (test code = 3575) POCT PREG TEST DATE ( test code = 3576) [facility]/[id number] 15:37:11* Test Item Value Reference Range Interpretation Comments SARS-CoV-2 INTERPRETATION (test code = 47939) POSITIVE SEE NOTE A SARS-CoV-2 R NA DETECTEDPositive results are indicative of the presence of SARS-CoV-2 RNA;clinical correlation with patient history and other diagnosticinformation is necessary to determine patient infection status.Positive results do not rule out bacterial infection or co-infectionwith other viruses. Positive and negative predictive values oftesting are highly dependent on prevalence. SOURCE (test code = 57286) NOT SPECIFIED Note: Methodolog y is Matt Tania Real-Time RT-PCR. The expected result or reference range is NEGATIVE (Not Detected). For more information regarding COVID-19 testing to include clinicalinformation, methodology detail, intended use, FDA authorization andrecommended fact sheets for patients or healthcare providers, see [employer] Announcement: SARS-CoV-2 (COVID-19) by NAAT at URL below (note,fact sheets are provided by method given in report:[email or web address] ommunications/ Alternatively, see downloadable PDF fact sheet at:[email or web address]://[email or web address] [email or web address]-24-SV-PCR UNLESS OTHERWISE INDICATED, ALL TESTING PERFORMED [facility] [address] [place] [id number] DIRECTOR GOVERNMENT: DAISY BENOIT M.D. CLIA NUMBER [id number] [facility] [place]. [id number] Notes Date/Time Note Provider Source 2023-11-16 08:00:00 f+A6axFsRtQ0Tt/3mht9 fc08Pwt8A5lzG bDAIg/B36gff4kdSu9G+vft0bzRVKkv24 18-11-20T08:00:00 ROUTINE VISIT11/16/2023 8:36 AMSUBJECTIVECheyenne Mock is a 28 year old at 15w3d who presents for routine visit. She has no complaints today; denies contractions, loss of fluid, vaginal bleeding, and signs or symptoms of pre-eclampsia.OBJECTIVEBP 101/68 (BP Location: Right arm, Patient Position: Sitting, BP CUFF SIZE: Adult Medium) | Pulse 85 | Temp 36.5 ?C (97.7 ?F) (Oral) | Resp 16 | Ht 5' 1" (1.549 m) | Wt 173 lb (78.5 kg) | LMP 06/01/2023 (Exact Date) | BMI 32.69 kg/m?FHT: 145Physical Exam:Gen: A&Ox3, NADPulm: No labored breathingAbd: Soft, gravid, NTTP, ND, no rebound or guardingExt: No calf tendernessASSESSMENT:Cheyenne Mock is a 28 year old at 15w3d who presents for routine visit.Patient Active Problem ListDiagnosisBMI 32.0-32.9,adultHigh-risk in first trimesterHistory of gallstonesPLAN1. 15 weeks gestation of - POCT Urinalysis w/o Specific [place]- Alpha Fetoprotein-Maternal Ser; Future2. High-risk in second trimester- CONSULT MATERNAL MEDICINE ULTRASOUND Preferred Location: [place]--NIPS testing reviewed, normal--anatomy US requested--Questions answeredMarisol MD Tammy 46768-6Rcopzklz bhowCC4882-19-42F11:37:25Progress noteTXT1.2.840.594227.1.13.104.2. 7.2.343901|[id number] for patient gmin27628-9ZtziWDTTBUTDUOGJxlridh ed C-CDA narrative textUTMBUTMB - [address] Kv[id number] 015SDEIAMJOFTXXEROHZLGCHR6137-07- 21T08:37:251.2.840.340657.1.72.3. 15|1.2.840.097605.1.13.104.2.7.2. [id number] [facility] 2023-10-30 10:12:39 LhRb1KzDcDj/ddFmICXV BbVllnpfRXsEN C2MA1kcOs5tbd1HWxGSB5vjH2E58edb28 19-11-03T10:12:39 Images from the original note were not included.Cherry results received via fax.Will discuss results at next visit.Results signed, will scan and upload a copy to [employer]. 51911-6Ocrupiymt encounter BfwcFS4651-46-93U51:13:40Telephon e encounter NoteTXT1.2.840.061732.1.13.104.2. 7.2.945894|[id number] for patient ljne82101-2QmccERYGIKJAXQVSzdvwsu ed C-CDA narrative text[address] KjbxHjefpgoyrFwdcgksmmYZEK5887895 942CYIHPWHUXVQTUDVKMFEEVE4140-97- 04T10:13:401.2.840.469017.1.72.3. 15|1.2.840.978209.1.13.104.2.7.2. [id number] [facility] 2023-10-23 13:54:42 h9sCGIl2h1Qyo7T3m8H7 d56D+hsWbc2fJ gCWRrhZT8pQMBoOTakIHJHf1RKPV5Cg42 21-10-25T13:54:42 Cherry results received via fax.Spoke with patient, name and verified. Patient informed of results excluding gender and verbalized understanding.Results signed, will scan and upload a copy to [employer]. 69434-7Raodmophq encounter SwuqEP3245-27-25C76:59:25Telephon e encounter NoteTXT1.2.840.291355.1.13.104.2. 7.2.849471|[id number] for patient esgh79418-8BghzCKDJFCCIMEKGwqnxjv ed C-CDA narrative text[address]TXTX[address]77 514IWBGRQMYPHGASIAGUHHBUM2798-31- 26T13:59:251.2.840.967131.1.72.3. 15|1.2.840.548135.1.13.104.2.7.2. [id number] [facility] 2023-10-17 09:45:00 F5BUifqz4CZade45+6lB G89cgATM8/SQo awu6lUHae/SxhmOHLrloXi6FegzWDJk46 21-10-19T09:45:00 Cherry Prado [facility] # [id number] 4870 69972-1Lmqfz CtwxXT5213-55-80O79:58:59Nurse NoteTXT1.2.840.868701.1.13.104.2. 7.2.578969|[id number] for patient eiqj13506-8Gmmlb NoteLNNARRATIVEFormatted C-CDA narrative vfez532676641Dtswzfydsn S LecompteUT[address] StreetTXTX[address] 125GCAZXWEDUAUBPLQFZWSCER4570-25- 20T08:58:591.2.840.420497.1.72.3. 15|1.2.840.738444.1.13.104.2.7.2. [id number] Pratima Livingston [facility] 2023-10-17 08:00:00 CdLV1eeejov4AoPXFeOq OnL0jnZK2sm2M liSR8TnRbbCJRIIpOI+eYjyE+gvBNF199 21-10-19T08:00:00 ROUTINE VISIT10/17/2023 8:26 AMSUBJECTIVEIsendrew Mock is a 28 year old at 11w1d who presents for routine visit. She has complaints today; denies contractions, loss of fluid, vaginal bleeding, and signs or symptoms of pre-eclampsia.Nausea and vomiting on and off.OBJECTIVEBP 136/76 (BP Location: Right arm, Patient Position: Sitting, BP CUFF SIZE: Adult Medium) | Pulse 85 | Temp 36.7 ?C (98.1 ?F) (Oral) | Resp 16 | Ht 5' 1" (1.549 m) | Wt 176 lb 9.6 oz (80.1 kg) | LMP 06/01/2023 (Exact Date) | BMI 33.37 kg/m?Physical Exam:Gen: A&Ox3, NADPulm: No labored breathingAbd: Soft, gravid, NTTP, ND, no rebound or guardingExt: No calf tendernessGU: ClosedFHR: 179, transverseASSESSMENT:Isilda Mock is a 28 year old at 11w1d who presents for routine visit.Patient Active Problem ListDiagnosisBMI 32.0-32.9,adultHigh-risk in first trimesterHistory of gallstonesPLAN1. 11 weeks gestation of - POCT Urinalysis w/o Specific Gravity2. High-risk in first trimester3. Nausea and vomiting during prior to 22 weeks gestation--recommend OTC Vit B6 and Unsiom since Cat A, call if not helpful after several days--Reviewed US findings--NIPS testing ordered--Questions answeredArnell MD Tammy 79184-1Csivqrsx xqmlSD9346-64-48C70:28:26Progress noteTXT1.2.840.168759.1.13.104.2. 7.2.115429|[id number] for patient gdjt68065-6UsoySAKUUFZXIMIXsoqton ed C-CDA narrative text[address]TXTX[address] 926CBMOKUXRHJUVHCIQYOJRHZ9710-62- 20T08:28:261.2.840.891892.1.72.3. 15|1.2.840.298567.1.13.104.2.7.2. [id number] [facility] 2023-10-10 08:17:29 8+opAbmUEBByNz/Kvng f5xxNOkaRnc4p AnQzODK1fAwxHi0ynFF7B9lrRsxHSUv78 21-10-12T08:17:29 [place] [address]-5Ycqfsaofi encounter BfhwOE8968-27-60W71:20:14Telephon e encounter NoteTXT1.2.840.734724.1.13.104.2. 7.2.649756|[id number] for patient mjlk25288-3ExwkQIHBGATTJWDBnzygay ed C-CDA narrative [id number] E Burch MAUT[address]TXTX[address] 394EEZLCYIMBUKSXSPFAFUMNR3719-28- 13T08:20:141.2.840.960134.1.72.3. 15|1.2.840.208604.1.13.104.2.7.2. [id number] Alfreda Cai MA [facility] 2023-09-30 10:00:00 1CKB9LfETZUzyW9+JTUr Cp+g366Mh5/Kj ajG6xL9tWmh4KwpxrfNm4s42lZOKcDI66 21-10-02T10:00:00 Images from the original note were not included.Venipuncture collection performed by clean technique on the left anticubitus. Total of 1 attempts were made. Slight pressure and a bandage/dressing were applied to the site(s). The patient experienced no complications. The following specimens were processed according to instructions and sent to [facility] laboratories per lab order on 09/30/2023:LT BLUESST 3RED 1LAV 3PPTDK GREEN (LiHep)DK GREEN (SodH)GRAYDK BLUE (K2)DK BLUE (S)ACDBlood CultureNIPT/NTDPatient has been identified by and name and was provided with cup, antiseptic towelette, and clean catch instructions. 2 urine specimen(s) sent.Unpreserved 1Urine Culture 1Aptima tubeOther urine 81305-5Jatct GidaJY7282-57-46I00:23:07Nurse NoteTXT1.2.840.368459.1.13.104.2. 7.2.561320|[id number] for patient asht53167-6Rygld NoteLNNARRATIVEFormatted C-CDA narrative text[address] FpfzBwhqevzdjIqyffataxWACM9033823 659BPEJHFDEZIPXWWGXIIQLBF5496-46- 03T10:23:071.2.840.407005.1.72.3. 15|1.2.840.630458.1.13.104.2.7.2. [id number] [facility]
[2023-11-23] MEDS ORDERED: ONDANSETRON 4 MG (ODT) TAB ONE ×2 (07:55→08:46)
[2023-11-23] MEDS ORDERED: PROMETHAZINE INJ 25 MG/ML AMP ONE (09:21)
[2023-11-23] MEDS ORDERED: NA CHLORIDE 0.9% 1,000 ML ONE (09:22)
[2023-11-23 09:30] LABS: Absolute Basophils 0.1 K/uL (0-0.5); Absolute Lymphocytes (CBC) 1.4 K/uL (0.7-4.9); Absolute Monocytes 0.5 K/uL (0.1-1.3); Absolute Neutrophil 6.8 K/uL (1.8-8.0); Basophils % 0.6 % (0-1.3); Eosinophils % 0.5 % (0-4.4); Hematocrit 38.1 % (36.0-45.0); Hemoglobin 13.1 g/dL (12.0-15.0); Lymphocytes % 16.5 % (15.3-44.8); MCH 32.7 pg (27.0-35.0); MCHC 34.4 g/dL (32.0-36.0); MCV 95.3 fL (80-100); MPV 9.6 fL (7.6-11.3); Monocytes % 5.5 % (3.3-12.3); Neutrophils % 76.9 % (41.7-73.7); Platelets 223 thou/uL (152-406); RBC Red Blood Cell Count 3.99 M/uL (3.86-4.86); Red Cell Distribution Width 12.4 % (12.1-15.2)
[2023-11-23 09:42] LABS: Albumin 3.2 g/dL (3.4-5.0); Albumin/Globulin Ratio 0.7 (1.1-1.8); Anion Gap 8.6 mEq/L (5.0-15.0); Bilirubin Total 0.6 mg/dL (0.2-1.0); Globulin 4.3 g/dL (2.3-3.5); Magnesium 2.1 mg/dL (1.6-2.4); Potassium 3.6 mEq/L (3.5-5.1); Protein, Total 7.5 g/dL (6.4-8.2)
--- NOTE | 2023-11-23 10:30 | ER ---
Nurse's Notes [facility] Name: Len Mock Age: 28 yrs Sex: Female : 1995 Arrival Date: 11/23/2023 Time: 07:24 Bed 20 Private MD: Diagnosis: Nausea with vomiting, unspecified Presentation: 11/22 07:47 Chief complaint: Patient states: Abdominal cramping, N/V/D. chills that began this kb3 yesterday. was seen in this ER yesterday for similar symptoms. Daughter was seen on Monday with similar symptoms. Coronavirus screen: Vaccine status: Patient reports receiving the 2nd dose of the covid vaccine. Client denies travel out of the [place] in the last 14 days. Ebola Screen: Patient negative for fever greater than or equal to 101.5 degrees Fahrenheit, and additional compatible Ebola Virus Disease symptoms Patient denies exposure to infectious person. Patient denies travel to an Ebola-affected area in the 21 days before illness onset. Initial Sepsis Screen: Does the patient meet any 2 criteria? No. Patient's initial sepsis screen is negative. Does the patient have a suspected source of infection? No. Patient's initial sepsis screen is negative. Risk Assessment: Do you want to hurt yourself or someone else? Patient reports no desire to harm self or others. Onset of symptoms was November 22, 2023. 07:47 Method Of Arrival: Ambulatory kb3 07:47 Acuity: KAYLEY 3 kb3 Triage Assessment: 07:50 General: Appears in no apparent distress. Behavior is calm, cooperative. Pain: kb3 Complains of pain in abdomen diffusely Pain does not radiate. Pain currently is 7 out of 10 on a pain scale. Quality of pain is described as crampy, Pain began 1 day ago. Is continuous. GI: Reports lower abdominal pain, upper abdominal pain, cramping, diarrhea, nausea, vomiting. 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 - Social history:: Smoking status: Patient denies any tobacco usage or history of. - Family history:: not pertinent. Screenin:52 [facility] ED Fall Risk Assessment (Adult) History of falling in the last 3 months, kb3 including since admission No falls in past 3 months (0 pts) Confusion or Disorientation No (0 pts) Intoxicated or Sedated No (0 pts) Impaired Gait No (0 pts) Mobility Assist Device Used No (0 pt) Altered Elimination No (0 pt) Score/Fall Risk Level 0 - 2 = Low Risk Oriented to surroundings. Abuse screen: Denies threats or abuse. Denies injuries from another. Nutritional screening: No deficits noted. Tuberculosis screening: No symptoms or risk factors identified. Assessment: 07:52 General: Appears in no apparent distress. Behavior is calm, cooperative. Pain: kb3 Complains of pain in abdomen diffusely Pain does not radiate. Pain currently is 7 out of 10 on a pain scale. Quality of pain is described as crampy, Pain began 1 day ago. Is continuous. GI: Reports lower abdominal pain, upper abdominal pain, cramping, diarrhea, nausea, vomiting. 07:59 Reassessment: Pt provided with orange juice and apple sauce for PO challenge. rs5 08:09 Reassessment: Patient and/or family updated on plan of care and expected duration. Pain rs5 level reassessed. Patient is alert, oriented x 3, equal unlabored respirations, skin warm/dry/pink. GI: Reports Intermittent cramping, in lower abdomen, pain ratting 4/10, pt denies nausea at this moment. 08:12 Reassessment: Patient states feeling better. Patient states symptoms have improved. kb3 08:40 Reassessment: Pt threw up orange juice, and complains of nausea, provider notified. rs5 10:00 Reassessment: Patient and/or family updated on plan of care and expected duration. Pain rs5 level reassessed. Patient is alert, oriented x 3, equal unlabored respirations, skin warm/dry/pink. Patient denies pain at this time. Patient states feeling better. 10:55 Reassessment: No changes from previously documented assessment. rs5 Vital Signs: 07:47 BP 103 / 67; Pulse 83; Resp 16; Temp 98.1; Pulse Ox 99% ; Weight 78.93 kg; Height 5 ft. kb3 1 in. ; Pain 7/10; 08:11 BP 110 / 72; Pulse 77; Resp 18; Pulse Ox 99% on R/A; rs5 10:50 BP 115 / 74; Pulse 74; Resp 18; Pulse Ox 99% on R/A; rs5 07:47 Body Mass Index 32.88 (78.93 kg, 154.94 cm) kb3 07:47 Pain Scale: Adult kb3 ED Course: 07:26 Patient arrived in ED. rg4 07:32 Romaine Melissa MD is Attending Physician. rt 07:50 Triage completed. kb3 07:50 Arm band placed on right wrist. kb3 07:52 Patient has correct armband on for positive identification. Bed in low position. Call kb3 light in reach. Provided Education on: POC. 07:52 No provider procedures requiring assistance completed. kb3 07:54 Christiano Trejo, RN is Primary Nurse. rs5 08:11 Pulse ox on. NIBP on. PO fluids given. Verbal reassurance given. kb3 08:27 Primary Nurse role handed off by Christiano Trejo, ANABEL jl7 08:51 Christiano Trejo, RN is Primary Nurse. rs5 09:20 Inserted saline lock: 20 gauge in left antecubital area, using aseptic technique. Blood rs5 collected. 11:01 IV discontinued, intact, bleeding controlled, No redness/swelling at site. Pressure rs5 dressing applied. Administered Medications: 07:57 Drug: Ondansetron Oral Disintegrating Tablet Oral Disintegrating Tablet 4 mg PO once kb3 Route: PO; 08:11 Follow up: Response: Nausea is decreased; Vomiting decreased kb3 08:52 Drug: Ondansetron Oral Disintegrating Tablet Oral Disintegrating Tablet 4 mg PO once rs5 Route: PO; 09:05 Follow up: Response: No adverse reaction rs5 09:29 Drug: NS 0.9% IV 1000 ml IV at 1 bolus Per protocol; 1000 mL bolus Route: IV; Rate: 1 rs5 bolus; Site: left antecubital; 09:45 Follow up: Response: No adverse reaction rs5 10:57 Follow up: Response: No adverse reaction rs5 09:29 Drug: Promethazine IVP 12.5 mg IVP once Route: IVP; Site: left antecubital; rs5 09:45 Follow up: Response: No adverse reaction rs5 Medication: 07:52 VIS not applicable for this client. kb3 Outcome: 10:29 Discharge ordered by . rt 11:00 Discharged to home ambulatory, rs5 11:00 Condition: stable rs5 11:00 Discharge instructions given to patient, family, Instructed on discharge instructions, follow up and referral plans. Demonstrated understanding of instructions, follow-up care, 11:02 Patient left the ED. rs5 Signatures: Judi Kang rg4 Pro Mackey RN RN jl7 Vera Smiley RN RN kb3 Romaine Melissa MD MD rt Christiano Trejo RN RN rs5
--- NOTE | 2023-11-23 10:30 | EDPHYS ---
Physician Documentation [facility] Name: Len Mock Age: 28 yrs Sex: Female : 1995 Arrival Date: 11/23/2023 Time: 07:24 Bed 20 Private MD: ED Physician Romaine Melissa HPI: 11/22 12:05 This 28 yrs old Female presents to ER via Ambulatory with complaints of Flu rt Symptoms, 17 weeks . 12:05 Patient was 17 weeks presents to the ED with nausea, vomiting, diarrhea. rt States that the whole family has similar symptoms. Symptoms started yesterday. She has not been able to tolerate anything by mouth. She denies other acute complaints at this time, symptoms are moderate in severity, no other aggravating or alleviating factors.. 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 - Social history:: Smoking status: Patient denies any tobacco usage or history of. - Family history:: not pertinent. ROS: 12:05 Constitutional: Negative for fever, chills, and weight loss, Cardiovascular: Negative rt for chest pain, palpitations, and edema, Respiratory: Negative for shortness of breath, cough, wheezing, and pleuritic chest pain, MS/Extremity: Negative for injury and deformity, Skin: Negative for injury, rash, and discoloration, Neuro: Negative for headache, weakness, numbness, tingling, and seizure, Psych: Negative for depression, anxiety, suicide ideation, homicidal ideation, and hallucinations, 12:05 Abdomen/GI: Positive for nausea and vomiting, Negative for abdominal pain, Exam: 12:05 Constitutional: This is a well developed, well nourished patient who is awake, alert, rt and in no acute distress. Head/Face: Normocephalic, atraumatic. Chest/axilla: Normal chest wall appearance and motion. Nontender with no deformity. No lesions are appreciated. Cardiovascular: Regular rate and rhythm with a normal S1 and S2. No gallops, murmurs, or rubs. Normal PMI, no JVD. No pulse deficits. Respiratory: Lungs have equal breath sounds bilaterally, clear to auscultation and percussion. No rales, rhonchi or wheezes noted. No increased work of breathing, no retractions or nasal flaring. Abdomen/GI: Soft, non-tender, with normal bowel sounds. No distension or tympany. No guarding or rebound. No evidence of tenderness throughout. Skin: Warm, dry with normal turgor. Normal color with no rashes, no lesions, and no evidence of cellulitis. MS/ Extremity: Pulses equal, no cyanosis. Neurovascular intact. Full, normal range of motion. Neuro: Awake and alert, GCS 15, oriented to person, place, time, and situation. Cranial nerves II-XII grossly intact. Motor strength 5/5 in all extremities. Sensory grossly intact. Cerebellar exam normal. Normal gait. Vital Signs: 07:47 BP 103 / 67; Pulse 83; Resp 16; Temp 98.1; Pulse Ox 99% ; Weight 78.93 kg; Height 5 ft. kb3 1 in. ; Pain 7/10; 08:11 BP 110 / 72; Pulse 77; Resp 18; Pulse Ox 99% on R/A; rs5 10:50 BP 115 / 74; Pulse 74; Resp 18; Pulse Ox 99% on R/A; rs5 07:47 Body Mass Index 32.88 (78.93 kg, 154.94 cm) kb3 07:47 Pain Scale: Adult kb3 MDM: 07:47 Patient medically screened. rt 12:05 Differential Diagnosis Viral syndrome, gastroenteritis. Data reviewed: vital signs, rt nurses notes. I considered the following discharge prescriptions or medication management in the emergency department Medications were administered in the Emergency Department. See MAR. Test considered but Not performed: CT: No focal abdominal tenderness, CT scan is not indicated. Counseling: I had a detailed discussion with the patient and/or guardian regarding the historical points, exam findings, and any diagnostic results supporting the discharge/admit diagnosis, lab results, the need for outpatient follow up, to return to the emergency department if symptoms worsen or persist or if there are any questions or concerns that arise at home. Response to treatment: the patient's symptoms have markedly improved after treatment. 11/22 09:11 Order name: CBC with Diff; Complete Time: 09:45 rt 11/22 09:11 Order name: CMP; Complete Time: 09:45 rt 11/22 09:11 Order name: Magnesium; Complete Time: 09:45 rt 11/22 07:53 Order name: PO challenge; Complete Time: 07:54 rt Administered Medications: 07:57 Drug: Ondansetron Oral Disintegrating Tablet Oral Disintegrating Tablet 4 mg PO once kb3 Route: PO; 08:11 Follow up: Response: Nausea is decreased; Vomiting decreased kb3 08:52 Drug: Ondansetron Oral Disintegrating Tablet Oral Disintegrating Tablet 4 mg PO once rs5 Route: PO; 09:05 Follow up: Response: No adverse reaction rs5 09:29 Drug: NS 0.9% IV 1000 ml IV at 1 bolus Per protocol; 1000 mL bolus Route: IV; Rate: 1 rs5 bolus; Site: left antecubital; 09:45 Follow up: Response: No adverse reaction rs5 10:57 Follow up: Response: No adverse reaction rs5 09:29 Drug: Promethazine IVP 12.5 mg IVP once Route: IVP; Site: left antecubital; rs5 09:45 Follow up: Response: No adverse reaction rs5 Disposition Summary: 11/23/23 10:29 Discharge Ordered Notes: Location: Home rt Problem: new rt Symptoms: have improved rt Condition: Stable rt Diagnosis - Nausea with vomiting, unspecified rt Followup: rt - With: Private Physician - When: 2 - 3 days - Reason: Discharge Instructions: - Discharge Summary Sheet rt - Nausea and Vomiting, Adult rt Forms: - Medication Reconciliation Form rt - Thank You Letter rt - Antibiotic Education rt - Prescription Opioid Use rt - Patient Portal Instructions rt - Leadership Thank You Letter rt Prescriptions: - promethazine 25 mg Oral Tablet - take 1 tablet ORAL route every 6 hours As needed; 20 tablet; Refills: 0, rt Product Selection Permitted Signatures: Dispatcher [employer] EDVera Lopez RN RN kb3 Romaine Melissa MD MD rt Christiano Trejo RN RN rs5
[2023-11-23 11:30] VITALS: BP 110/72; TEMP 98.1; O2SAT 99
== END 2023-11-23 11:02 | disposition home or self-care (01) ==
LOC: ER 07:24
DX: O21.9 Vomiting of pregnancy, unspecified (principal); Z3A.17 17 weeks gestation of pregnancy
CPT/HCPCS: 85025; 36415; 83735; 80053; 96374; 99284; J2550; Q0162 ×2; J7030